=== PATIENT | male | born 1965 | race Caucasian/White ===

== ENCOUNTER 2019-05-20 10:16 | Inpatient (IN) | payer BC ==
[~2019-05-20] VITALS: Ht 167.6 cm; Wt 69.5 kg
[2019-05-20] MEDS ORDERED: SOD CHLORIDE 0.9% 500 ML IV STA (10:18)
--- NOTE | 2019-05-20 10:29 | ERD ---
ER Documentation Chief Complaint Chief Complaint Possible stroke HPI This is a 53-year-old gentleman history of hypertension who presents to the emergency room with possible stroke. Patient arrived via EMS. Last known well time is 2300 on 05/19/2019. The patient states that just before bed he started to note weakness in his right leg. EMS reports weakness in the right leg right upper extremity and right-sided facial droop sparing of the forehead. Patient denies any chest pain shortness breath fevers or chills, no falls, no headache. Patient had a code stroke initiated from the field. He was taken directly to CT. Remainder of HPI is limited given critical nature. During the patient's encounter translation services were utilized Language: Estonian Source: In person ROS All systems reviewed and are negative except as per history of present illness. Medications Home Meds Reported Medications Flaxseed Oil (FLAX SEED OIL) 1,000 Mg Capsule, 1000 MG PO DAILY, CAP 05/20/19 Aspirin* (Aspirin* EC) 81 Mg Tablet.dr, 81 MG PO DAILY, TAB 05/20/19 Amlodipine Besylate* (Norvasc*) 5 Mg Tablet, 5 MG PO DAILY, TAB 05/20/19 Lisinopril* (Lisinopril*) 20 Mg Tablet, 20 MG PO DAILY, #30 TAB 05/20/19 Potassium Chloride* (Potassium Chloride*) 8 Meq Capsule.er, 8 MEQ PO DAILY, CAP 05/20/19 Allergies Allergies: Coded Allergies: Penicillins (Unverified Allergy, Unknown, 05/20/19) PMhx/Soc HTN FmHx Family History: No diabetes Physical Exam Vitals Vital Signs Date Temp Pulse Resp B/P (MAP) Pulse Ox O2 O2 Flow FiO2 Time Delivery Rate 05/20/19 98.0 88 18 179/104 98 10:24 (129) Physical Exam General: Well developed, well nourished, no acute distress Head: Normocephalic, atraumatic. Eyes: Pupils equally reactive, EOM intact ENT: Moist mucous membranes Neck: Supple, no lymphadenopathy Respiratory: Lungs clear bilaterally, no distress Cardiovascular: RRR, no murmurs, rubs, or gallops Abdominal: Soft, non-tender, non-distended, no peritoneal signs : Deferred MSK: No edema, no unilateral swelling, 5/5 strength Neurologic: The patient is alert and oriented. He has a right-sided facial droop sparing of the forehead. He has subtle weakness of the right upper extremity but no significant pronator drift. The patient has weakness of the right lower extremity but no drift. No gaze preference. Following commands. Normal speech, no slurred speech. NIHSS of 2 Skin: No rash Psych: Normal mood Result Diagram: 05/20/19 1035 05/20/19 1035 Results 24 hrs Laboratory Tests Test 05/20/19 10:35 05/20/19 10:58 White Blood Count 12.6 10^3/ul Red Blood Count 4.99 10^6/ul Hemoglobin 15.0 g/dl Hematocrit 43.7 % Mean Corpuscular Volume 87.6 fl Mean Corpuscular Hemoglobin 30.1 pg Mean Corpuscular Hemoglobin Concent 34.3 g/dl Red Cell Distribution Width 12.7 % Platelet Count 123 10^3/UL Mean Platelet Volume 12.4 fl Immature Granulocytes % 0.400 % Neutrophils % 79.6 % Lymphocytes % 7.5 % Monocytes % 11.2 % Eosinophils % 0.8 % Basophils % 0.5 % Nucleated Red Blood Cells % 0.0 /100WBC Immature Granulocytes # 0.050 10^3/ul Neutrophils # 10.0 10^3/ul Lymphocytes # 0.9 10^3/ul Monocytes # 1.4 10^3/ul Eosinophils # 0.1 10^3/ul Basophils # 0.1 10^3/ul Nucleated Red Blood Cells # 0.0 10^3/ul Prothrombin Time 14.4 Sec Prothrombin Time Ratio 1.1 INR International Normalized Ratio 1.11 Activated Partial Thromboplast Time 31.2 Sec Sodium Level 140 mmol/L Potassium Level 3.8 mmol/L Chloride Level 107 mmol/L Carbon Dioxide Level 24 mmol/L Anion Gap 9 Blood Urea Nitrogen 11 mg/dl Creatinine 0.69 mg/dl Est Glomerular Filtrat Rate mL/min > 60 mL/min Glucose Level 91 mg/dl Hemoglobin A1c 5.2 % Calcium Level 8.8 mg/dl Creatine Kinase 54 IU/L Creatine Kinase Index 1.6 Creatinine Kinase MB (Mass) 0.86 ng/ml Troponin I < 0.012 ng/ml Triglycerides Level 211 mg/dl Cholesterol Level 110 mg/dl LDL Cholesterol, Calculated 43 mg/dl HDL Cholesterol 25 mg/dl Cholesterol/HDL Ratio 4.4 RATIO Ethyl Alcohol Level < 10.0 mg/dl Bedside Glucose 106 mg/dL Current Medications Medications Dose Sig/Emmett Start Time Status Last (Trade) Ordered Route PRN Stop Time Admin Dose Reason Admin Sodium 500 ml @ Q1H STAT 05/20/19 DC 05/20/19 Chloride 500 mls/hr IV 10:18 11:16 05/20/19 11:17 IV Flush 10 ml STK-MED 05/20/19 DC 05/20/19 (NS 10 ml) ONCE .ROUTE 10:33 10:37 05/20/19 10:34 Sodium 100 ml @ ud STK-MED 05/20/19 DC 05/20/19 Chloride ONCE .ROUTE 10:33 10:37 05/20/19 10:34 Iohexol 100 ml @ ud STK-MED 05/20/19 DC 05/20/19 ONCE .ROUTE 10:33 10:38 05/20/19 10:34 Aspirin 162 mg ONCE ONCE 05/20/19 DC 05/20/19 (Aspirin) PO 11:00 11:16 05/20/19 11:01 Ondansetron 4 mg ER BRIDGE 05/20/19 HCl (Zofran PRN IV 11:30 Inj) NAUSEA/VOMITI 05/21/19 11:29 NG 650 mg ER BRIDGE 05/20/19 Acetaminophen PRN PO 11:30 (Tylenol .MILD PAIN 05/21/19 11:29 Tab) 1-3 OR TEMP Procedures/MDM EKG, MONITORS, & DIAGNOSTIC IMAGING: EKG: I reviewed and interpreted a 12-lead EKG. Rhythm: Normal sinus rhythm Ectopy: None Arrhythmia: None Intervals: No abnormalities ST segments: No elevations or depressions T waves: No contiguous inversions Interpretation: No acute cardiac ischemia Chest x-ray: I reviewed and interpreted a 1 view of the chest Mediastinum: No enlargement Cardiac silhouette: No cardiomegaly Airspace: Clear lung lee bilaterally without evidence of pneumothorax Bones: No evidence of fracture Interpretation: No acute cardiopulmonary process CT Brain: IMPRESSION: 1. No loss of murray-white differentiation to suggest acute territorial infarction. Consider CTA of the head/neck or noncontrast MRI of the brain as clinically warranted. 2. No acute intracranial hemorrhage. 3. Mild to moderate central greater than peripheral cerebral volume loss. 4. Advanced chronic microvascular ischemic changes. 5. Chronic left frontal opercular infarction as detailed above. 6. Left frontal temporal subdural collection/hygroma with coarse calcifications along the dura as detailed above. 7. Left middle cranial fossa subdural collection versus arachnoid cyst. 8. Left hemisphere craniotomy. 9. 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 Further findings as detailed above. RPTAT: PP CTA Head and Neck: IMPRESSION: CTA Head 1. No arterial thrombus or vessel occlusion. 2. No intracranial stenosis. 3. No intracranial aneurysm. CTA Neck 1. No bilateral cervical internal carotid artery stenosis by NASCET criteria. Further findings as detailed above. Critical findings were discussed with Jethro Jensen on 05/20/2019 at 10:49 AM. RPTAT: PP LAB INTERPRETATION: No acute process, labs reviewed MEDICAL DECISION MAKING: The patient presents to the emergency room with acute neurologic deficit within the past 24 hours. His last known well time is 11 PM yesterday evening. This is almost 12 hours status post onset. The patient is not a TPA candidate for this reason. A code stroke was initiated from the field based on the symptoms. Patient's clinical exam is concerning for possible MCA injury. However, the patient's deficits are mild. ER COURSE: Stroke assessment and timing: Last known well time: 11 PM on 05/19/2019 Arrival to ED: 1016 Stroke code activation: [address] scan: Directed CT Patient returns from CT: See nursing notes Initial neurology discussion: 1034 NIHSS: 2 TPA decision-making: Patient is outside of 4-1/2 hour window Interventional decision-making: Potential interventional candidate given duration of symptoms within 24 hours. Patient directly taken to CTA, CT brain Stroke neurologist on-call: Dr. Head Critical Care Note: Total time: 40 Indication/Organ System Threat: Acute neurologic deficit and stroke code activation that requires emergent evaluation and assessment to prevent neurol ogic compromising collapse. I spent the above amount of critical care time with the patient, not including billable procedures. This included chart review, consultations, repeat bedside evaluations, and titration of appropriate medications to prevent cardiopulmonary or respiratory collapse. The patient does not have a large vessel occlusion. Aspirin provided. Permissive hypertension observed. Patient warrants inpatient hospitalization for further work-up, MRI imaging. I kept the patient and/or family informed of laboratory and diagnostic imaging results throughout the emergency room course. DISPOSITION PLAN: Telemetry admission CONSULTATION: Accepting care team and consultations: I discussed the current laboratory data, diagnostic imaging and emergency care provided. Admitting team: Dr. Parks Admitting team indication: Insurance directed Departure Diagnosis: Primary Impression: Acute ischemic stroke Additional Impressions: Right sided weakness Hypertensive urgency Condition: Stable JETHRO COCHRAN MD May 20, 2019 10:29
[2019-05-20] MEDS ORDERED: IOHEXOL 100 ML ONE (10:33)
[2019-05-20] MEDS ORDERED: SOD CHLORIDE 0.9% 100 ML ONE (10:33)
--- NOTE | 2019-05-20 10:51 | STROKE ---
Date/Time of Note Date/Time of Note DATE: 05/20/19 TIME: 13:26 Patient Information General Arrival Date Age 53 Gender male Weight NIH Stroke Scale NIH Stroke Scale Date/Time Recorded DATE: 05/20/19 TIME: 13: Submitted By Luis Felipe Patino t-PA Imaging Review Date/Time Imaging Reviewed DATE: 05/20/19 TIME: 13:26 t-PA Administration Weight Recommedation submitted by Luis Felipe Patino Recommendations Recommendation ,53 yo rh m with htn presenting with sudden onset right leg weakness last night at 11 pm and right arm weakness starting around 1:00 pm yesterday. he presents to the emergency room now with right face, arm, leg weakness. he has had right leg weakness off and on for years. 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contrast head ct was performed. i reviewed this study. he shows extensive left frontal white matter disease that spares the cortex concerning for vasogenic edema versus remote ischemic stroke or post surgical change. there is also significant extra-axial space overlying the left frontal lobe consistent with his tumor resection history. i reviewed the cta of the head and neck and see that the proximal mca is open on the left and the right. patient should be admitted for stroke workup and stroke mimics such as tumor should be included in the differential diagnoses.Not a candidate for tPA because we are now outside the time frame for such therapy. Not a candidate for thrombectomy because no LVO detected on vascular imaging and low ASPECT score. Aspirin 325 now. BP < 200/110. Telemetry. Consultation with local inpatient neurologist. MRI Brain w/wo. If stroke on MRI - hypercoagulable workup, TTE, consider LINQ. PT/OT/SLT. Bedside swallow. Stroke Education. Smoking cessation counseling, if a smoker. Recommendations were discussed with ED MD and RN. LUIS FELIPE PATINO MD May 20, 2019 10:39
[2019-05-20] MEDS ORDERED: LISI-471 PO (10:58)
[2019-05-20] MEDS ORDERED: POTA8CAP PO (10:58)
[2019-05-20] MEDS ORDERED: ASPI-817 PO (10:59)
[2019-05-20] MEDS ORDERED: AMLO5TAB4 PO (10:59)
[2019-05-20] MEDS ORDERED: FLAX100016 PO (11:00)
[2019-05-20] MEDS ORDERED: ASPIRIN 81 MG TAB PO ONE (11:00)
[2019-05-20] MEDS ORDERED: ACETAMINOPHEN 325 MG TAB PO PRN (11:30)
[2019-05-20] MEDS ORDERED: ONDANSETRON 4 MG INJ IV PRN ×2 (11:30→12:30)
[2019-05-20] MEDS ORDERED: DOCUSATE SODIUM 100 MG CAP PO PRN (12:30)
[2019-05-20] MEDS ORDERED: NACL 0.9% 3 ML SYG IV SCH (12:30)
--- NOTE | 2019-05-20 12:51 | HP ---
Date/Time of Note Date/Time of Note DATE: 05/20/19 TIME: 12:44 Assessment/Plan VTE Prophylaxis Pharmacological prophylaxis: LMWH Lines/Catheters IV [facility]ter [facility]from [facility] Saline Lock Assessment/Plan Hospital Course SUBJECTIVE: OBJECTIVE: Vital signs-see below PHYSICAL EXAM: Constitutional: Adequately built,not in acute distress. HEENT:,Mild rt facial droop+ Head atraumatic and normocephalic. Eyes: Extraocular muscles intact. Anicteric sclerae. Pupils equal bilaterally, reactive to light. NECK: Supple without lymph node. CHEST: Clear and good breath sounds equally. No wheezing. No rhonchi. HEART: S1, S2. Regular rate and rhythm. ABDOMEN: Soft/non tender with no rebound tenderness. Bowel sounds were present. EXTREMITIES: No cyanosis, clubbing or edema. NEUROLOGIC: Alert and oriented x3. Speech clear. Mild rt facial droop. RUE/RLE w eaker without drift.Intact sensation. PSYCHOSOCIAL: No signs of depression. INTEGUMENTARY: No open wounds. ASSESSMENT AND PLAN: 53 yo M w/htn,dlp, tobacco dependency, alcohol use, left frontal temporal hygroma, left-sided craniotomy with tumor resection admitted with 1 week duration of right upper extremity numbness, right lower extremity weakness got worse last night with a right-sided facial droop.... Rule out CVA, outside TPA window -CT brain/CTA studies unrevealing -Proceed with brain MRI -Aspirin/high intensity statin -Neurology consultation -PT/OT/ST -Permissive hypertension ~24hrs Essential hypertension -Resume home medications in AM. -Now allow permissive blood pressure ~24 hrs Dyslipidemia -Start statin -Fish oil supplementation to help with HDL/triglycerides Tobacco dependency -Cessation advised. - Nicotine patch Alcohol use/dependency -Counselled Leukocytosis, likely reactive -Monitor Thrombocytopenia, likely secondary to alcohol use -Stable. Monitor DVT prophylaxis: Lovenox Rest of the management depend on clinical course. Approximately 60 m spent on this history and physical. Patient was seen in collaboration with Dr. Parks. Result Diagram: 05/20/19 1035 05/20/19 1035 Results 24hrs Laboratory Tests Test 05/20/19 10:35 05/20/19 10:58 White Blood Count 12.6 H Red Blood Count 4.99 Hemoglobin 15.0 Hematocrit 43.7 Mean Corpuscular Volume 87.6 Mean Corpuscular Hemoglobin 30.1 Mean Corpuscular Hemoglobin Concent 34.3 Red Cell Distribution Width 12.7 Platelet Count 123 L Mean Platelet Volume 12.4 H Immature Granulocytes % 0.400 Neutrophils % 79.6 H Lymphocytes % 7.5 L Monocytes % 11.2 H Eosinophils % 0.8 Basophils % 0.5 Nucleated Red Blood Cells % 0.0 Immature Granulocytes # 0.050 H Neutrophils # 10.0 H Lymphocytes # 0.9 Monocytes # 1.4 H Eosinophils # 0.1 Basophils # 0.1 Nucleated Red Blood Cells # 0.0 Prothrombin Time 14.4 Prothrombin Time Ratio 1.1 INR International Normalized Ratio 1.11 Activated Partial Thromboplast Time 31.2 Sodium Level 140 Potassium Level 3.8 Chloride Level 107 Carbon Dioxide Level 24 Anion Gap 9 Blood Urea Nitrogen 11 Creatinine 0.69 Est Glomerular Filtrat Rate mL/min > 60 Glucose Level 91 Hemoglobin A1c 5.2 Calcium Level 8.8 Creatine Kinase 54 Creatine Kinase Index 1.6 Creatinine Kinase MB (Mass) 0.86 Troponin I < 0.012 Triglycerides Level 211 H Cholesterol Level 110 LDL Cholesterol, Calculated 43 HDL Cholesterol 25 L Cholesterol/HDL Ratio 4.4 Ethyl Alcohol Level < 10.0 H Bedside Glucose 106 HPI/ROS Admit Date/Time Admit Date/Time Hx of Present Illness This is a 53-year-old Guamanian-speaking male with a history of hypertension, dyslipidemia, tobacco dependency, alcohol use, left frontal temporal hygroma, left-sided craniotomy with tumor resection presented to the emergency room with 1 week duration of right upper extremity numbness, right lower extremity weakness Apparently, patient felt like his right upper extremity weakness got worse with a new right-sided facial droop since last night. Patient also reported having difficulty finding words at times. Patient denied headache, loss of consciousness, dizziness, vision changes, fever, cough, chills, recent travel or contact with sick people, chest pain, palpitation, nausea, vomiting, abdominal pain, diarrhea, or other constitutional symptoms. On arrival to the emergency room, patient had a blood pressure 179/104. Brain CT showed left frontal white matter disease, without evidence to suggest acute territorial infarction. There was no acute intracranial hemorrhage. There was evidence of left frontal temporal subdural collection/hygroma. CTA head/neck unremarkable for any major intracranial/carotid artery stenosis. Labs unremarkable except for white count 12,600, platelet 123, triglycerides 211, low HDL 25. Telemetry neurology consultation was done in the emergency room and patient was deemed not a candidate for TPA secondary to outside window.. ROS A 12 point review of system was assessed and is negative other than what is mentioned in the HPI PMH/Family/Social Past Medical History See HPI Medications Current Medications Ondansetron HCl (Zofran Inj) 4 mg ER BRIDGE PRN IV NAUSEA/VOMITING; Start 05/20/19 at 11:30; Stop 05/21/19 at 11:29 Acetaminophen (Tylenol Tab) 650 mg ER BRIDGE PRN PO .MILD PAIN 1-3 OR TEMP; Start 05/20/19 at 11:30; Stop 05/21/19 at 11:29 Coded Allergies: Penicillins (Unverified Allergy, Unknown, 05/20/19) Past Surgical History See HPI Social History Current every day smoker 1 pack/day, 3 beers per day. Smoking Status: Current every day smoker Exam/Review of Systems Vital Signs Vitals Vital Signs Date Temp Pulse Resp B/P (MAP) Pulse Ox O2 O2 Flow FiO2 Time Delivery Rate 05/20/19 98.0 85 18 184/105 95 Nasal 2.0 12:20 (131) Cannula CADEN CLEMENS NP May 20, 2019 12:51
[2019-05-20] MEDS ORDERED: ATORVASTATIN 80 MG TAB PO ONE (14:00)
[2019-05-20] MEDS ORDERED: hydrALAzine 20 MG INJ IV PRN (14:00)
[2019-05-20 15:13] VITALS: Ht 167.6 cm; Wt 69.5 kg
[2019-05-20 20:33] VITALS: BP 161/93; PULSE 76; RESP 18
[2019-05-20] MEDS ORDERED: LORAZEPAM 2 MG INJ IV ONE (22:00)
[2019-05-20] MEDS: FISH OIL 1,000 MG CAP PO SCH (22:10)
[2019-05-21] VITALS: BP 154/94; PULSE 80; RESP 18
[2019-05-21 04:09] VITALS: BP 126/82; PULSE 61; RESP 16
[2019-05-21 07:25] VITALS: BP 145/86; PULSE 51; RESP 18
[2019-05-21] MEDS: FISH OIL 1,000 MG CAP PO SCH ×2 (08:39→20:02)
[2019-05-21] MEDS: ASPIRIN (EC) 81 MG TAB PO SCH (08:39)
[2019-05-21] MEDS: LISINOPRIL 20 MG TAB PO SCH (08:40)
[2019-05-21] MEDS: AMLODIPINE 5 MG TAB PO SCH (08:40)
[2019-05-21] MEDS: ENOXAPARIN 40 MG/0.4 ML SYG SC SCH (08:54)
--- NOTE | 2019-05-21 09:34 | CONSI ---
Assessment/Plan Assessment/Plan Assessment/Plan (Recall) 53 M c/ multiple comorbidities, presents for evaluation of several days of right sided weakness and numbness...for which neurology is consulted. The clinical picture is concerning for acute stroke.. Focal seizure is possible.. Recrudescence is a Dx of exclusion... Head CT is unrevealing. CTA Head and neck are the same P: Await MRI Brain for further characterization Agree w/ asa daily for secondary stroke prevention for now EEG to exclude epileptiform activity PT/OT/ST as necessary Other management and supportive care per primary Will follow Consultation Date/Type/Reason Admit Date/Time Type of Consult Neurology Reason for Consultation r sided weakness/numbness Requesting Provider: CADEN CLEMENS NP Date/Time of Note DATE: 05/21/19 TIME: 09:26 Hx of Present Illness This is a 53-year-old Kiswahili-speaking male with a history of hypertension, dyslipidemia, tobacco dependency, alcohol use, left frontal temporal hygroma, left-sided craniotomy with tumor resection presented to the emergency room with 1 week duration of right upper extremity numbness, right lower extremity weakness Apparently, patient felt like his right upper extremity weakness got worse with a new right-sided facial droop since last night. Patient also reported having d ifficulty finding words at times. Patient denied headache, loss of consciousness, dizziness, vision changes, fever, cough, chills, recent travel or contact with sick people, chest pain, palpitation, nausea, vomiting, abdominal pain, diarrhea, or other constitutional symptoms. On arrival to the emergency room, patient had a blood pressure 179/104. Brain CT showed left frontal white matter disease, without evidence to suggest acute territorial infarction. There was no acute intracranial hemorrhage. There was evidence of left frontal temporal subdural collection/hygroma. CTA head/neck unremarkable for any major intracranial/carotid artery stenosis. Labs unremarkable except for white count 12,600, platelet 123, triglycerides 211, low HDL 25. Telemetry neurology consultation was done in the emergency room and patient was deemed not a candidate for TPA secondary to outside window.. o/w neg Objective Exam Vitals Vital Signs Date Temp Pulse Resp B/P (MAP) Pulse Ox O2 O2 Flow FiO2 Time Delivery Rate 05/21/19 97.5 51 18 145/86 98 Room Air 07:25 (105) 05/20/19 2.0 13:54 Intake and Output 05/20/19 05/20/19 05/21/19 1515:00 23:00 07:00 IntakeIntake Total 610 ml OutputOutput Total 750 ml BalanceBalance -140 ml Exam PE: Gen Appearance: No Apparent Distress HEENT: Normocephalic Cardiovascular: Regular rate Lungs: Clear bilaterally Abdomen: Soft Extremities: Dry NE: The patient was alert and oriented. Language was normal. Fund of knowledge was normal. Pupils were equal and reactive to light. There was no afferent pupillary defect. Visual lee were normal. Funduscopic examination was limited. Extra-ocular movements were full. Ptosis was absent. There was no nystagmus. Facial sensation was normal. Face was grossly symmetric with normal strength. Hearing was intact. Palate movements were normal. Neck strength was normal. There was normal tongue bulk and speed of movement. Tone was normal. Muscle bulk was normal. I did not see fasciculations. Arms and legs were strong to confrontation, though there was a right pronator drift.. Vibration sensation was normal. Temperature and pinprick sensation was normal. Rapid alternating movements were normal. There was no dysmetria. There was no intention tremor. Gait was deferred due to bedrest. Arm and leg reflexes were symmetric. Danielson's sign was absent. Plantar responses were flexor. Results Result Diagram: 05/21/1961205/21/19612 Results 24hrs Laboratory Tests Test 05/20/19 10:35 05/20/19 10:58 05/20/19 14:47 05/20/19 15:50 White Blood Count 12.6 H Red Blood Count 4.99 Hemoglobin 15.0 Hematocrit 43.7 Mean Corpuscular 87.6 Volume Mean Corpuscular 30.1 Hemoglobin Mean Corpuscular 34.3 Hemoglobin Concent Red Cell 12.7 Distribution Width Platelet Count 123 L 127 L Mean Platelet Volume 12.4 H Immature 0.400 Granulocytes % Neutrophils % 79.6 H Lymphocytes % 7.5 L Monocytes % 11.2 H Eosinophils % 0.8 Basophils % 0.5 Nucleated Red Blood 0.0 Cells % Immature 0.050 H Granulocytes # Neutrophils # 10.0 H Lymphocytes # 0.9 Monocytes # 1.4 H Eosinophils # 0.1 Basophils # 0.1 Nucleated Red Blood 0.0 Cells # Prothrombin Time 14.4 13.8 Prothrombin Time 1.1 1.1 Ratio INR International 1.11 1.05 Normalized Ratio Activated 31.2 31.1 Partial Thromboplast Time Sodium Level 140 Potassium Level 3.8 Chloride Level 107 Carbon Dioxide Level 24 Anion Gap 9 Blood Urea Nitrogen 11 Creatinine 0.69 Est Glomerular > 60 Filtrat Rate mL/min Glucose Level 91 Hemoglobin A1c 5.2 Calcium Level 8.8 Creatine Kinase 54 Creatine Kinase 1.6 Index Creatinine Kinase MB 0.86 (Mass) Troponin I < 0.012 Triglycerides Level 211 H Cholesterol Level 110 LDL Cholesterol, 43 Calculated HDL Cholesterol 25 L Cholesterol/HDL 4.4 Ratio Ethyl Alcohol Level < 10.0 H Bedside Glucose 106 Thrombin Time 15.6 Urine Color YELLOW Urine Clarity CLEAR Urine pH 7.0 Urine Specific 1.033 H [place] Urine Ketones NEGATIVE Urine Nitrite NEGATIVE Urine Bilirubin NEGATIVE Urine Urobilinogen NEGATIVE Urine Leukocyte NEGATIVE Esterase Urine Hemoglobin NEGATIVE Urine Glucose NEGATIVE Urine Total Protein NEGATIVE Urine Opiates Screen Negative Urine Barbiturates Negative Urine Amphetamines Negative Screen Urine Negative Benzodiazepines Screen Urine Cocaine Screen Negative Urine Cannabinoids Negative Test 05/21/19 06:13 White Blood Count 12.7 H Red Blood Count 5.21 Hemoglobin 15.8 Hematocrit 46.1 Mean Corpuscular 88.5 Volume Mean Corpuscular 30.3 Hemoglobin Mean Corpuscular 34.3 Hemoglobin Concent Red Cell 12.8 Distribution Width Platelet Count 130 L Mean Platelet Volume 12.8 H Immature 0.400 Granulocytes % Neutrophils % 68.6 Lymphocytes % 16.6 Monocytes % 11.4 H Eosinophils % 2.4 Basophils % 0.6 Nucleated Red Blood 0.0 Cells % Immature 0.050 H Granulocytes # Neutrophils # 8.7 H Lymphocytes # 2.1 Monocytes # 1.4 H Eosinophils # 0.3 Basophils # 0.1 Nucleated Red Blood 0.0 Cells # Sodium Level 142 Potassium Level 3.8 Chloride Level 107 Carbon Dioxide Level 24 Anion Gap 11 Blood Urea Nitrogen 11 Creatinine 0.80 Est Glomerular > 60 Filtrat Rate mL/min Glucose Level 120 Calcium Level 9.3 Phosphorus Level 3.8 Magnesium Level 2.2 Total Bilirubin 1.3 Direct Bilirubin 0.00 Indirect Bilirubin 1.3 H Aspartate Amino 21 Transf (AST/SGOT) Alanine 20 Aminotransferase (AL T/SGPT) Alkaline Phosphatase 76 Total Protein 6.6 Albumin 4.1 Globulin 2.50 Albumin/Globulin 1.64 Ratio Past Medical History reviewed Home Meds Reported Medications Flaxseed Oil (FLAX SEED OIL) 1,000 Mg Capsule, 1000 MG PO DAILY, CAP 05/20/19 Aspirin* (Aspirin* EC) 81 Mg Tablet.dr, 81 MG PO DAILY, TAB 05/20/19 Amlodipine Besylate* (Norvasc*) 5 Mg Tablet, 5 MG PO DAILY, TAB 05/20/19 Lisinopril* (Lisinopril*) 20 Mg Tablet, 20 MG PO DAILY, #30 TAB 05/20/19 Potassium Chloride* (Potassium Chloride*) 8 Meq Capsule.er, 8 MEQ PO DAILY, CAP 05/20/19 Medications Current Medications Ondansetron HCl (Zofran Inj) 4 mg ER BRIDGE PRN IV NAUSEA/VOMITING; Start 05/20/19 at 11:30; Stop 05/21/19 at 11:29 Acetaminophen (Tylenol Tab) 650 mg ER BRIDGE PRN PO .MILD PAIN 1-3 OR TEMP; Start 05/20/19 at 11:30; Stop 05/21/19 at 11:29 Amlodipine Besylate (Norvasc) 5 mg DAILY PO Last administered on 05/21/19at 08: 40; Admin Dose 5 MG; Start 05/21/19 at 09:00 Aspirin (Halfprin) 81 mg DAILY PO Last administered on 05/21/19at 08:39; Admin Dose 81 MG; Start 05/21/19 at 09:00 Lisinopril (Zestril) 20 mg DAILY PO Last administered on 05/21/19at 08:40; Admin Dose 20 MG; Start 05/21/19 at 09:00 IV Flush (NS 3 ml) 3 ml PER PROTOCOL IV ; Start 05/20/19 at 12:30 Ondansetron HCl (Zofran Inj) 4 mg Q6H PRN IV NAUSEA/VOMITING; Start 05/20/19 at 12:30 Acetaminophen (Tylenol Tab) 650 mg Q6H PRN PO .PAIN 1-3 OR TEMP; Start 05/20/19 at 12:30 Docusate Sodium (Colace) 100 mg Q12H PRN PO .CONSTIPATION; Start 05/20/19 at 12 :30 Enoxaparin Sodium (Lovenox) 40 mg DAILY SC Last administered on 05/21/19at 08:54; Admin Dose 40 MG; Start 05/21/19 at 09:00 Atorvastatin Calcium (Lipitor) 80 mg HS PO ; Start 05/21/19 at 21:00 Fish Oil (Fish Oil) 1,000 mg BID PO Last administered on 05/21/19at 08:39; Admin Dose 1,000 MG; Start 05/20/19 at 21:00 Hydralazine HCl (Apresoline) 10 mg Q6H PRN IV SBP>210; Start 05/20/19 at 14:00 Miscellaneous Information Patients own medicat... BID@10,16 XX ; Start 05/21/19 at 10:00 Allergies: Coded Allergies: Penicillins (Unverified Allergy, Unknown, 05/20/19) Social History Smoking Status: Current every day smoker CHARLIE MAKI May 21, 2019 09:34
--- NOTE | 2019-05-21 10:31 | PN ---
Date/Time of Note Date/Time of Note DATE: 05/21/19 TIME: : Assessment/Plan VTE Prophylaxis SCD applied (from Nsg): Yes Pharmacological prophylaxis: LMWH Lines/Catheters IV Catheter Type (from Nrsg): Peripheral IV Urinary Cath still in place: No Assessment/Plan Hospital Course SUBJECTIVE: No acute overnight episodes. No focal deficits. OBJECTIVE: Vital signs-see below PHYSICAL EXAM: Constitutional: Adequately built,not in acute distress. HEENT:,Mild rt facial droop+ Head atraumatic and normocephalic. Eyes: Extraocular muscles intact. Anicteric sclerae. Pupils equal bilaterally, reactive to light. NECK: Supple without lymph node. CHEST: Clear and good breath sounds equally. No wheezing. No rhonchi. HEART: S1, S2. Regular rate and rhythm. ABDOMEN: Soft/non tender with no rebound tenderness. Bowel sounds were present. EXTREMITIES: No cyanosis, clubbing or edema. NEUROLOGIC: Alert and oriented x3. Speech clear. Mild rt facial droop. RUE/RLE weaker without drift.Intact sensation. PSYCHOSOCIAL: No signs of depression. INTEGUMENTARY: No open wounds. ASSESSMENT AND PLAN: 53 yo M w/htn,dlp, tobacco dependency, alcohol use, left frontal temporal hygroma, left-sided craniotomy with tumor resection admitted with 1 week duration of right upper extremity numbness, right lower extremity weakness got worse last night with a right-sided facial droop.... Rule out CVA, outside TPA window -CT brain/CTA studies unrevealing -pending brain MRI -Aspirin/high intensity statin -PT/OT/ST -f/u neurology recs Essential hypertension -stable -Resume CCB Dyslipidemia -on statin/Fish oil supplementation Tobacco dependency -Cessation advised. - Nicotine patch Alcohol use/dependency -Counselled Leukocytosis, likely reactive -Monitor Thrombocytopenia, likely secondary to alcohol use -Stable. Monitor DVT prophylaxis: Lovenox Dispo:f/u mri/eeg. dc plan likely in am once work-up completed. Patient was seen in collaboration with Dr. Parks. Result Diagram: 05/21/19 0613 05/21/1913 Results 24hrs Laboratory Tests Test 05/20/19 10:35 05/20/19 10:58 05/20/19 14:47 05/20/19 15:50 White Blood Count 12.6 H Red Blood Count 4.99 Hemoglobin 15.0 Hematocrit 43.7 Mean Corpuscular 87.6 Volume Mean Corpuscular 30.1 Hemoglobin Mean Corpuscular 34.3 Hemoglobin Concent Red Cell 12.7 Distribution Width Platelet Count 123 L 127 L Mean Platelet Volume 12.4 H Immature 0.400 Granulocytes % Neutrophils % 79.6 H Lymphocytes % 7.5 L Monocytes % 11.2 H Eosinophils % 0.8 Basophils % 0.5 Nucleated Red Blood 0.0 Cells % Immature 0.050 H Granulocytes # Neutrophils # 10.0 H Lymphocytes # 0.9 Monocytes # 1.4 H Eosinophils # 0.1 Basophils # 0.1 Nucleated Red Blood 0.0 Cells # Prothrombin Time 14.4 13.8 Prothrombin Time 1.1 1.1 Ratio INR International 1.11 1.05 Normalized Ratio Activated 31.2 31.1 Partial Thromboplast Time Sodium Level 140 Potassium Level 3.8 Chloride Level 107 Carbon Dioxide Level 24 Anion Gap 9 Blood Urea Nitrogen 11 Creatinine 0.69 Est Glomerular > 60 Filtrat Rate mL/min Glucose Level 91 Hemoglobin A1c 5.2 Calcium Level 8.8 Creatine Kinase 54 Creatine Kinase 1.6 Index Creatinine Kinase MB 0.86 (Mass) Troponin I < 0.012 Triglycerides Level 211 H Cholesterol Level 110 LDL Cholesterol, 43 Calculated HDL Cholesterol 25 L Cholesterol/HDL 4.4 Ratio Ethyl Alcohol Level < 10.0 H Bedside Glucose 106 Thrombin Time 15.6 Urine Color YELLOW Urine Clarity CLEAR Urine pH 7.0 Urine Specific 1.033 H [place] Urine Ketones NEGATIVE Urine Nitrite NEGATIVE Urine Bilirubin NEGATIVE Urine Urobilinogen NEGATIVE Urine Leukocyte NEGATIVE Esterase Urine Hemoglobin NEGATIVE Urine Glucose NEGATIVE Urine Total Protein NEGATIVE Urine Opiates Screen Negative Urine Barbiturates Negative Urine Amphetamines Negative Screen Urine Negative Benzodiazepines Screen Urine Cocaine Screen Negative Urine Cannabinoids Negative Test 05/21/19 06:13 White Blood Count 12.7 H Red Blood Count 5.21 Hemoglobin 15.8 Hematocrit 46.1 Mean Corpuscular 88.5 Volume Mean Corpuscular 30.3 Hemoglobin Mean Corpuscular 34.3 Hemoglobin Concent Red Cell 12.8 Distribution Width Platelet Count 130 L Mean Platelet Volume 12.8 H Immature 0.400 Granulocytes % Neutrophils % 68.6 Lymphocytes % 16.6 Monocytes % 11.4 H Eosinophils % 2.4 Basophils % 0.6 Nucleated Red Blood 0.0 Cells % Immature 0.050 H Granulocytes # Neutrophils # 8.7 H Lymphocytes # 2.1 Monocytes # 1.4 H Eosinophils # 0.3 Basophils # 0.1 Nucleated Red Blood 0.0 Cells # Sodium Level 142 Potassium Level 3.8 Chloride Level 107 Carbon Dioxide Level 24 Anion Gap 11 Blood Urea Nitrogen 11 Creatinine 0.80 Est Glomerular > 60 Filtrat Rate mL/min Glucose Level 120 Calcium Level 9.3 Phosphorus Level 3.8 Magnesium Level 2.2 Total Bilirubin 1.3 Direct Bilirubin 0.00 Indirect Bilirubin 1.3 H Aspartate Amino 21 Transf (AST/SGOT) Alanine 20 Aminotransferase (AL T/SGPT) Alkaline Phosphatase 76 Total Protein 6.6 Albumin 4.1 Globulin 2.50 Albumin/Globulin 1.64 Ratio Exam/Review of Systems Exam Vitals Vital Signs Date Temp Pulse Resp B/P (MAP) Pulse Ox O2 O2 Flow FiO2 Time Delivery Rate 05/21/19 97.5 51 18 145/86 98 Room Air 07:25 (105) 05/20/19 2.0 13:54 Intake and Output 05/20/19 05/20/19 05/21/19 1515:00 23:00 07:00 IntakeIntake Total 610 ml OutputOutput Total 750 ml BalanceBalance -140 ml Results Results 24hrs Laboratory Tests Test 05/20/19 10:35 05/20/19 10:58 05/20/19 14:47 05/20/19 15:50 White Blood Count 12.6 H Red Blood Count 4.99 Hemoglobin 15.0 Hematocrit 43.7 Mean Corpuscular 87.6 Volume Mean Corpuscular 30.1 Hemoglobin Mean Corpuscular 34.3 Hemoglobin Concent Red Cell 12.7 Distribution Width Platelet Count 123 L 127 L Mean Platelet Volume 12.4 H Immature 0.400 Granulocytes % Neutrophils % 79.6 H Lymphocytes % 7.5 L Monocytes % 11.2 H Eosinophils % 0.8 Basophils % 0.5 Nucleated Red Blood 0.0 Cells % Immature 0.050 H Granulocytes # Neutrophils # 10.0 H Lymphocytes # 0.9 Monocytes # 1.4 H Eosinophils # 0.1 Basophils # 0.1 Nucleated Red Blood 0.0 Cells # Prothrombin Time 14.4 13.8 Prothrombin Time 1.1 1.1 Ratio INR International 1.11 1.05 Normalized Ratio Activated 31.2 31.1 Partial Thromboplast Time Sodium Level 140 Potassium Level 3.8 Chloride Level 107 Carbon Dioxide Level 24 Anion Gap 9 Blood Urea Nitrogen 11 Creatinine 0.69 Est Glomerular > 60 Filtrat Rate mL/min Glucose Level 91 Hemoglobin A1c 5.2 Calcium Level 8.8 Creatine Kinase 54 Creatine Kinase 1.6 Index Creatinine Kinase MB 0.86 (Mass) Troponin I < 0.012 Triglycerides Level 211 H Cholesterol Level 110 LDL Cholesterol, 43 Calculated HDL Cholesterol 25 L Cholesterol/HDL 4.4 Ratio Ethyl Alcohol Level < 10.0 H Bedside Glucose 106 Thrombin Time 15.6 Urine Color YELLOW Urine Clarity CLEAR Urine pH 7.0 Urine Specific 1.033 H [place] Urine Ketones NEGATIVE Urine Nitrite NEGATIVE Urine Bilirubin NEGATIVE Urine Urobilinogen NEGATIVE Urine Leukocyte NEGATIVE Esterase Urine Hemoglobin NEGATIVE Urine Glucose NEGATIVE Urine Total Protein NEGATIVE Urine Opiates Screen Negative Urine Barbiturates Negative Urine Amphetamines Negative Screen Urine Negative Benzodiazepines Screen Urine Cocaine Screen Negative Urine Cannabinoids Negative Test 05/21/19 06:13 White Blood Count 12.7 H Red Blood Count 5.21 Hemoglobin 15.8 Hematocrit 46.1 Mean Corpuscular 88.5 Volume Mean Corpuscular 30.3 Hemoglobin Mean Corpuscular 34.3 Hemoglobin Concent Red Cell 12.8 Distribution Width Platelet Count 130 L Mean Platelet Volume 12.8 H Immature 0.400 Granulocytes % Neutrophils % 68.6 Lymphocytes % 16.6 Monocytes % 11.4 H Eosinophils % 2.4 Basophils % 0.6 Nucleated Red Blood 0.0 Cells % Immature 0.050 H Granulocytes # Neutrophils # 8.7 H Lymphocytes # 2.1 Monocytes # 1.4 H Eosinophils # 0.3 Basophils # 0.1 Nucleated Red Blood 0.0 Cells # Sodium Level 142 Potassium Level 3.8 Chloride Level 107 Carbon Dioxide Level 24 Anion Gap 11 Blood Urea Nitrogen 11 Creatinine 0.80 Est Glomerular > 60 Filtrat Rate mL/min Glucose Level 120 Calcium Level 9.3 Phosphorus Level 3.8 Magnesium Level 2.2 Total Bilirubin 1.3 Direct Bilirubin 0.00 Indirect Bilirubin 1.3 H Aspartate Amino 21 Transf (AST/SGOT) Alanine 20 Aminotransferase (AL T/SGPT) Alkaline Phosphatase 76 Total Protein 6.6 Albumin 4.1 Globulin 2.50 Albumin/Globulin 1.64 Ratio Medications Medication Current Medications Ondansetron HCl (Zofran Inj) 4 mg ER BRIDGE PRN IV NAUSEA/VOMITING; Start 05/20/19 at 11:30; Stop 05/21/19 at 11:29 Acetaminophen (Tylenol Tab) 650 mg ER BRIDGE PRN PO .MILD PAIN 1-3 OR TEMP; Start 05/20/19 at 11:30; Stop 05/21/19 at 11:29 Amlodipine Besylate (Norvasc) 5 mg DAILY PO Last administered on 05/21/19at 08:40; Admin Dose 5 MG; Start 05/21/19 at 09:00 Aspirin (Halfprin) 81 mg DAILY PO Last administered on 05/21/19at 08:39; Admin Dose 81 MG; Start 05/21/19 at 09:00 Lisinopril (Zestril) 20 mg DAILY PO Last administered on 05/21/19at 08:40; Admin Dose 20 MG; Start 05/21/19 at 09:00 IV Flush (NS 3 ml) 3 ml PER PROTOCOL IV ; Start 05/20/19 at 12:30 Ondansetron HCl (Zofran Inj) 4 mg Q6H PRN IV NAUSEA/VOMITING; Start 05/20/19 at 12:30 Acetaminophen (Tylenol Tab) 650 mg Q6H PRN PO .PAIN 1-3 OR TEMP; Start 05/20/19 at 12:30 Docusate Sodium (Colace) 100 mg Q12H PRN PO .CONSTIPATION; Start 05/20/19 at 12:30 Enoxaparin Sodium (Lovenox) 40 mg DAILY SC Last administered on 05/21/19at 08:54; Admin Dose 40 MG; Start 05/21/19 at 09:00 Atorvastatin Calcium (Lipitor) 80 mg HS PO ; Start 05/21/19 at 21:00 Fish Oil (Fish Oil) 1,000 mg BID PO Last administered on 05/21/19at 08:39; Admin Dose 1,000 MG; Start 05/20/19 at 21:00 Hydralazine HCl (Apresoline) 10 mg Q6H PRN IV SBP>210; Start 05/20/19 at 14:00 Miscellaneous Information Patients own medicat... BID@,16 XX ; Start 05/21/19 at 10:00 CADEN CLEMENS NP May 21, 2019 10:31
[2019-05-21] MEDS: NICOTINE (21 MG/24 HR) PATCH TRANSDERM SCH (11:32)
[2019-05-21 12:18] VITALS: BP 160/82; PULSE 84; RESP 18
--- NOTE | 2019-05-21 12:33 | RADRPT ---
Echocardiogram Report Patient Name: Gwen MCNEALnt ID: [id number] : 1965 (53y 9m)Study Date: 05/20/2019 1:33:57 PM Gender: MAccession #: [id number] Tech: Shade Garvin RDCS Location: ER Ref.Physician: CADEN CLEMENS Height(Cm): BSA: Weight(Kg): Quality: AdequateOrder Physician: CADEN CLEMENS Account #: Procedures: Echocardiographic Report: Transthoracic echocardiogram with complete 2D, M-Mode, and doppler examination. Indications: Measurements: 2D/M Mode Doppler Measurement Value Normal Range Measurement Value Normal Range LVIDd 2D 4.4 [ 4.2 - 5.8 ] cm AV Peak Sudarshan 1.5 [ 100.0 - 170.0 ] cm/sec LVIDs 2D 2.8 [ 2.5 - 4.0 ] cm AV Peak PG 9.0 [ 2.0 - 9.0 ] mmHg LVPWd 2D 1.3 [ 0.6 - 1.0 ] cm LVOT Peak Sudarshan 1.1 [ 70.0 - 110.0 ] cm/sec IVSd 2D 1.3 [ 0.6 - 1.0 ] cm LVOT Peak PG 5.0 [ 2.0 - 6.0 ] mmHg AoR Diam 2D 3.0 [ 2.6 - 3.4 ] cm MV E Peak Sudarshan 0.9 [ 60.0 - 130.0 ] cm/sec EDV 2D 89.1 [ 62.0 - 150.0 ] ml MV A Peak Sudarshan 1.2 [ 100.0 - 120.0 ] cm/sec ESV 2D 29.6 [ 21.0 - 61.0 ] ml MV E/A 0.7 [ 0.8 - 1.5 ] ratio EF 2D 66.8 [ 52.0 - 72.0 ] percent MV Decel Time 239 [ 104 - 258 ] msec LA Dimen 2D 3.4 [ 3.0 - 4.0 ] cm Lat E` Sudarshan 0.1 [ 10.0 - 15.0 ] cm/sec Lateral E/E` 13.0 [ 1.0 - 2.0 ] ratio Med E` Sudarshan 0.1 cm/sec MV E/A 0.7 [ 0.8 - 1.5 ] ratio TR Peak Sudarshan 1.6 [ 100.0 - 280.0 ] cm/sec TR Peak PG 11.0 mmHg RVSP 14.0 [ 10.0 - 36.0 ] mmHg RA Pressure 3.0 mmHg Findings: Left Ventricle: Normal left ventricular systolic function. Normal left ventricular cavity size. Mild concentric left ventricular hypertrophy. Ejection fraction is visually estimated at 65 %. Tissue Doppler/Mitral Doppler indices are consistent with impaired relaxation (Stage I diastolic dysfunction). Right Ventricle: Normal right ventricular size. Normal right ventricular systolic function. Left Atrium: There is mild enlargement of left atrium. Right Atrium: The right atrium is normal in size. Atrial Septum: Bubble study was performed with and with out valsalva indicating no evidence of intra atrial shunt. Mitral Valve: Normal appearance of the mitral valve. Normal appearance and function of the mitral valve with trace physiologic regurgitation. Aortic Valve: Normal appearance of the aortic valve. No significant aortic stenosis or insufficiency. Tricuspid Valve: Normal appearance and function of the tricuspid valve with trace physiologic regurgitation. Unable to obtain RVSP due to minimal presence of tricuspid regurgitation. Pulmonic Valve: Normal pulmonic valve appearance. Pericardium: Normal pericardium with no significant pericardial effusion. Aorta: Normal aortic root. IVC: Normal size and normal respiratory collapse consistent with normal right atrial pressure. Conclusions: Normal left ventricular systolic function. Normal left ventricular cavity size. Mild concentric left ventricular hypertrophy. Ejection fraction is visually estimated at 65 %. Tissue Doppler/Mitral Doppler indices are consistent with impaired relaxation (Stage I diastolic dysfunction). No significant valvular stenosis or regurgitation seen. Bubble study was performed with and with out valsalva indicating no evidence of intra atrial shunt. Unable to obtain RVSP due to minimal presence of tricuspid regurgitation. Normal size and normal respiratory collapse consistent with normal right atrial pressure. Electronically Signed By: Aron Krause 2019-05-21 12:32:40 PDT
[2019-05-21 15:20] VITALS: BP 151/91; PULSE 89; RESP 18
[2019-05-21 20:00] VITALS: BP 162/74; PULSE 88; RESP 18
[2019-05-21] MEDS: ATORVASTATIN 80 MG TAB PO SCH (20:02)
[2019-05-22] VITALS: BP 176/104; PULSE 79; RESP 18
[2019-05-22 04:00] VITALS: BP 135/83; PULSE 89; RESP 18
[2019-05-22 07:29] VITALS: BP 161/96; PULSE 87; RESP 18
[2019-05-22] MEDS: FISH OIL 1,000 MG CAP PO SCH ×2 (08:31→20:51)
[2019-05-22] MEDS: AMLODIPINE 5 MG TAB PO SCH (08:32)
[2019-05-22] MEDS: ASPIRIN (EC) 81 MG TAB PO SCH (08:32)
[2019-05-22] MEDS: NICOTINE (21 MG/24 HR) PATCH TRANSDERM SCH (08:32)
[2019-05-22] MEDS: LISINOPRIL 20 MG TAB PO SCH (08:32)
[2019-05-22] MEDS: ENOXAPARIN 40 MG/0.4 ML SYG SC SCH (09:41)
--- NOTE | 2019-05-22 10:14 | PN ---
Date/Time of Note Date/Time of Note DATE: 05/22/19 TIME: 10:11 Assessment/Plan VTE Prophylaxis Risk score (from Ns)>0 risk: 2 SCD applied (from Ns): Yes Pharmacological prophylaxis: NA/contraindicated Pharm contraindication: low risk/ambulating, thrombocytopenia Lines/Catheters [facility] (from [facility] Peripheral IV Urinary Cath still in place: No Assessment/Plan Hospital Course SUBJECTIVE: no acute distress OBJECTIVE: Vital signs-see below PHYSICAL EXAM: Constitutional: Adequately built,not in acute distress. HEENT:,Mild rt facial droop+ Head atraumatic and normocephalic. Eyes: Extraocular muscles intact. Anicteric sclerae. Pupils equal bilaterally, reactive to light. NECK: Supple without lymph node. CHEST: Clear and good breath sounds equally. No wheezing. No rhonchi. HEART: S1, S2. Regular rate and rhythm. ABDOMEN: Soft/non tender with no rebound tenderness. Bowel sounds were present. EXTREMITIES: No cyanosis, clubbing or edema. NEUROLOGIC: Alert and oriented x3. Speech clear. Mild rt facial droop. RUE/RLE weaker without drift.Intact sensation. PSYCHOSOCIAL: No signs of depression. INTEGUMENTARY: No open wounds. ASSESSMENT AND PLAN: 53 yo M w/htn,dlp, tobacco dependency, alcohol use, left frontal temporal hygroma, left-sided craniotomy with tumor resection admitted with 1 week duration of right upper extremity numbness, right lower extremity weakness got worse last night with a right-sided facial droop.... Acute CVA, outside TPA window -Aspirin/high intensity statin -PT/OT/ST -f/u neurology recs Essential hypertension -stable -on CCB Dyslipidemia -on statin/Fish oil supplementation Tobacco dependency -Cessation advised. - Nicotine patch Alcohol use/dependency -Counselled Leukocytosis, likely reactive -Monitor Mild Thrombocytopenia, likely secondary to alcohol use -Stable. Monitor DVT prophylaxis: SCDs Dispo:cont.post stroke rehab. f/u neurology recs.dc planning in am if no further inpt rehab indicated. Patient was seen in collaboration with Dr. Parks. Result Diagram: 05/22/19 0550 05/22/19 0550 Results 24hrs Laboratory Tests Test 05/22/19 05:50 White Blood Count 12.6 H Red Blood Count 5.32 Hemoglobin 16.2 Hematocrit 46.7 Mean Corpuscular Volume 87.8 Mean Corpuscular Hemoglobin 30.5 Mean Corpuscular Hemoglobin Concent 34.7 Red Cell Distribution Width 12.6 Platelet Count 124 L Mean Platelet Volume 12.7 H Immature Granulocytes % 0.600 H Neutrophils % 72.6 Lymphocytes % 13.7 L Monocytes % 11.1 H Eosinophils % 1.6 Basophils % 0.4 Nucleated Red Blood Cells % 0.0 Immature Granulocytes # 0.070 H Neutrophils # 9.2 H Lymphocytes # 1.7 Monocytes # 1.4 H Eosinophils # 0.2 Basophils # 0.1 Nucleated Red Blood Cells # 0.0 Sodium Level 141 Potassium Level 3.5 Chloride Level 108 Carbon Dioxide Level 23 Anion Gap 10 Blood Urea Nitrogen 13 Creatinine 0.75 Est Glomerular Filtrat Rate mL/min > 60 Glucose Level 124 Calcium Level 9.0 Exam/Review of Systems Exam Vitals Vital Signs Date Temp Pulse Resp B/P (MAP) Pulse Ox O2 O2 Flow FiO2 Time Delivery Rate 05/22/19 98.7 87 18 161/96 98 Room Air 07:29 (117) 05/20/19 2.0 13:54 Intake and Output 05/21/19 05/21/19 05/22/19 1515:00 23:00 07:00 IntakeIntake Total 300 ml 500 ml 240 ml BalanceBalance 300 ml 500 ml 240 ml Results Results 24hrs Laboratory Tests Test 05/22/19 05:50 White Blood Count 12.6 H Red Blood Count 5.32 Hemoglobin 16.2 Hematocrit 46.7 Mean Corpuscular Volume 87.8 Mean Corpuscular Hemoglobin 30.5 Mean Corpuscular Hemoglobin Concent 34.7 Red Cell Distribution Width 12.6 Platelet Count 124 L Mean Platelet Volume 12.7 H Immature Granulocytes % 0.600 H Neutrophils % 72.6 Lymphocytes % 13.7 L Monocytes % 11.1 H Eosinophils % 1.6 Basophils % 0.4 Nucleated Red Blood Cells % 0.0 Immature Granulocytes # 0.070 H Neutrophils # 9.2 H Lymphocytes # 1.7 Monocytes # 1.4 H Eosinophils # 0.2 Basophils # 0.1 Nucleated Red Blood Cells # 0.0 Sodium Level 141 Potassium Level 3.5 Chloride Level 108 Carbon Dioxide Level 23 Anion Gap 10 Blood Urea Nitrogen 13 Creatinine 0.75 Est Glomerular Filtrat Rate mL/min > 60 Glucose Level 124 Calcium Level 9.0 Medications Medication Current Medications Amlodipine Besylate (Norvasc) 5 mg DAILY PO Last administered on 05/22/19 08:32; Admin Dose 5 MG; Start 05/21/19 at 09:00 Aspirin (Halfprin) 81 mg DAILY PO Last administered on 05/22/19 08:32; Admin Dose 81 MG; Start 05/21/19 at 09:00 Lisinopril (Zestril) 20 mg DAILY PO Last administered on 05/22/19 08:32; Admin Dose 20 MG; Start 05/21/19 at 09:00 IV Flush (NS 3 ml) 3 ml PER PROTOCOL IV ; Start 05/20/19 at 12:30 Ondansetron HCl (Zofran Inj) 4 mg Q6H PRN IV NAUSEA/VOMITING; Start 05/20/19 at 12:30 Acetaminophen (Tylenol Tab) 650 mg Q6H PRN PO .PAIN 1-3 OR TEMP; Start 05/20/19 at 12:30 Docusate Sodium (Colace) 100 mg Q12H PRN PO .CONSTIPATION; Start 05/20/19 at 12:30 Enoxaparin Sodium (Lovenox) 40 mg DAILY SC Last administered on 05/22/19 09:41; Admin Dose 40 MG; Start 05/21/19 at 09:00 Atorvastatin Calcium (Lipitor) 80 mg HS PO Last administered on 05/21/19 20:02; Admin Dose 80 MG; Start 05/21/19 at 21:00 Fish Oil (Fish Oil) 1,000 mg BID PO Last administered on 05/22/19 08:31; Admin Dose 1,000 MG; Start 05/20/19 at 21:00 Hydralazine HCl (Apresoline) 10 mg Q6H PRN IV SBP>170 Last administered on 05/22/19 00:41; Admin Dose 10 MG; Start 05/20/19 at 14:00 Miscellaneous Information Patients own medicat... BID@10,16 XX ; Start 05/21/19 at 10:00 Nicotine (Nicoderm 21 Mg/ 24hr) 1 patch DAILY TRANSDERM Last administered on 05/22/19 08:32; Admin Dose 1 PATCH; Start 05/21/19 at 10:30 CADEN CLEMENS NP May 22, 2019 10:14
[2019-05-22 16:22] VITALS: BP 139/90; PULSE 83; RESP 18
[2019-05-22 20:00] VITALS: BP 158/92; PULSE 89; RESP 18
[2019-05-22] MEDS: ATORVASTATIN 80 MG TAB PO SCH (20:51)
[2019-05-23] VITALS: BP 159/97; PULSE 85; RESP 18
[2019-05-23 04:00] VITALS: BP 132/85; PULSE 81; RESP 18
[2019-05-23 07:26] VITALS: BP 143/92; PULSE 92; RESP 18
[2019-05-23] MEDS: ASPIRIN (EC) 81 MG TAB PO SCH (08:12)
[2019-05-23] MEDS: FISH OIL 1,000 MG CAP PO SCH ×2 (08:13→21:06)
[2019-05-23] MEDS: AMLODIPINE 5 MG TAB PO SCH (08:13)
[2019-05-23] MEDS: LISINOPRIL 20 MG TAB PO SCH (08:14)
[2019-05-23] MEDS: NICOTINE (21 MG/24 HR) PATCH TRANSDERM SCH (08:14)
--- NOTE | 2019-05-23 09:30 | DS ---
Date/Time of Note Date/Time of Note DATE: 05/23/19 TIME: 09:28 Discharge Summary Admission/Discharge Info Admit Date/Time May 20, 2019 at 11:17 Discharge Date/Time Discharge Diagnosis Acute CVA Essential hypertension Dyslipidemia Tobacco dependency Alcohol use/dependency Leukocytosis, likely reactive Mild Thrombocytopenia, likely secondary to alcohol use Patient Condition: Stable Consults Procedures 05/21/2019: Brain MRI: IMPRESSION: 1. Acute / recent 6 mm right posterior limb of the internal capsule infarction. There is also acute / recent bilateral posterior cheatham radiata infarctions. There is also possible punctate left posterior temporal acute / recent infarction. 2. Mild to moderate generalized cerebral volume loss. 3. Advanced chronic microvascular ischemic changes. 4. Chronic left frontal opercular infarction. 5. Left frontal temporal subdural collection/hygroma with coarse calcification. 6. Left middle cranial fossa extension of subdural collection. 05 21 2019: 2D echo with bubble study: Conclusions: Normal left ventricular systolic function. Normal left ventricular cavity size. Mild concentric left ventricular hypertrophy. Ejection fraction is visually estimated at 65 %. Tissue Doppler/Mitral Doppler indices are consistent with impaired relaxation (Stage I diastolic dysfunction). No significant valvular stenosis or regurgitation seen. Bubble study was performed with and with out valsalva indicating no evidence of intra atrial shunt. Unable to obtain RVSP due to minimal presence of tricuspid regurgitation. Normal size and normal respiratory collapse consistent with normal right atrial pressure. Electronically Signed By: Aron Krause 2019-05-21 12:32:40 PDT 7. Left hemispheric craniotomy. 8. 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 9. Chronic right basal ganglia and bilateral thalamic lacunar infarctions. Further findings as detailed above. RPTAT: HVF .Jimi Colindres MD, Date Time Electronically viewed and signed by .Jimi Colindres MD, on 05/21/2019 11:02 .F/ CC: CADEN CLEMENS NP [phone] Hx of Present Illness This is a 53-year-old Burmese-speaking male with a history of hypertension, dyslipidemia, tobacco dependency, alcohol use, left frontal temporal hygroma, left-sided craniotomy with tumor resection presented to the emergency room with 1 week duration of right upper extremity numbness, right lower extremity weakness Apparently, patient felt like his right upper extremity weakness got worse with a new right-sided facial droop since last night. Patient also reported having difficulty finding words at times. Patient denied headache, loss of consciousness, dizziness, vision changes, fever, cough, chills, recent travel or contact with sick people, chest pain, palpitation, nausea, vomiting, abdominal pain, diarrhea, or other constitutional symptoms. On arrival to the emergency room, patient had a blood pressure 179/104. Brain CT showed left frontal white matter disease, without evidence to suggest acute territorial infarction. There was no acute intracranial hemorrhage. There was evidence of left frontal temporal subdural collection/hygroma. CTA head/neck unremarkable for any major intracranial/carotid artery stenosis. Labs unremark able except for white count 12,600, platelet 123, triglycerides 211, low HDL 25. Telemetry neurology consultation was done in the emergency room and patient was deemed not a candidate for TPA secondary to outside window.. Hospital Course SUBJECTIVE: no acute distress OBJECTIVE: Vital signs-see below PHYSICAL EXAM: Constitutional: Adequately built,not in acute distress. HEENT:,Mild rt facial droop+ Head atraumatic and normocephalic. Eyes: Extraocular muscles intact. Anicteric sclerae. Pupils equal bilaterally, reactive to light. NECK: Supple without lymph node. CHEST: Clear and good breath sounds equally. No wheezing. No rhonchi. HEART: S1, S2.53 yo M w/htn,dlp, tobacco dependency, alcohol use, left frontal temporal hygroma, left-sided craniotomy with tumor resection admitted with 1 week duration of right upper extremity numbness, right lower extremity weakness got worse last night with a right-sided facial droop.... Patient was noted with elevated blood pressure on arrival. Patient symptoms well highly concerning for acute stroke. Patient was started on aspirin/high intensity statin. Patient was out of TPA window. MRI confirmed Acute / recent 6 mm right posterior limb of the internal capsule infarction. There is also acute / recent bilateral posterior cheatham radiata infarctions. There is also possible punctate left posterior temporal acute / recent infarction. There was no evidence of major intracranial artery stenosis/occlusion. 2D echo with bubble study negative for shunting. Patient had PT/OT/ST evaluation and was cleared without any further inpatient rehabilitation recommended. Patient did not have any further focal deficit other than having right facial droop. He was able to tolerate diet and activities well. He did not require any assistive devices. At this time, we will discharge patient with outpatient follow-up once cleared from neurology standpoint. Patient was also counseled on cessation of tobacco products and alcohol. Approximately 60-minute was spent on coordinating the discharge on this patient. Patient was seen in collaboration with Dr. HughesRegular rate and rhythm. ABDOMEN: Soft/non tender with no rebound tenderness. Bowel sounds were present. EXTREMITIES: No cyanosis, clubbing or edema. NEUROLOGIC: Alert and oriented x3. Speech clear. Mild rt facial droop. RUE/RLE weaker without drift.Intact sensation. PSYCHOSOCIAL: No signs of depression. INTEGUMENTARY: No open wounds. ASSESSMENT AND PLAN: 53 yo M w/htn,dlp, tobacco dependency, alcohol use, left frontal temporal hygroma, left-sided craniotomy with tumor resection admitted with 1 week duration of right upper extremity numbness, right lower extremity weakness got worse last night with a right-sided facial droop.... Acute CVA, outside TPA window -Aspirin/high intensity statin -PT/OT/ST -f/u neurology recs Essential hypertension -stable -on CCB Dyslipidemia -on statin/Fish oil supplementation Tobacco dependency -Cessation advised. - Nicotine patch Alcohol use/dependency -Counselled Leukocytosis, likely reactive -Monitor Mild Thrombocytopenia, likely secondary to alcohol use -Stable. Monitor DVT prophylaxis: SCDs Dispo:cont.post stroke rehab. f/u neurology recs.dc planning in am if no further inpt rehab indicated. Patient was seen in collaboration with Dr. Parks. Home Meds Active Scripts Docusate Sodium* (Colace*) 100 Mg Capsule, 100 MG PO Q12H PRN for .CONSTIPATION, #30 CAP Prov:CLEMENS,CDAEN V. MIRROR PAINTER 05/23/19 [place]uyer-3/Dha/Epa/Fish Oil (Fish Oil 1,000 mg Softgel) 1,000 Mg Capsule, 1000 MG PO BID, #60 CAP Prov:CLEMENS,CADEN V. MIRROR PAINTER 05/23/19 Atorvastatin* (Atorvastatin*) 80 Mg Tablet, 80 MG PO HS, #30 TAB Prov:CADEN CLEMENS NP 05/23/19 Aspirin* (Aspirin* EC) 81 Mg Tablet.dr, 81 MG PO DAILY, #30 TAB Prov:CADEN CLEMENS NP 05/23/19 Reported Medications Amlodipine Besylate* (Norvasc*) 5 Mg Tablet, 5 MG PO DAILY, TAB 05/20/19 Lisinopril* (Lisinopril*) 20 Mg Tablet, 20 MG PO DAILY, #30 TAB 05/20/19 Discontinued Reported Medications Flaxseed Oil (FLAX SEED OIL) 1,000 Mg Capsule, 1000 MG PO DAILY, CAP 05/20/19 Potassium Chloride* (Potassium Chloride*) 8 Meq Capsule.er, 8 MEQ PO DAILY, CAP 05/20/19 Primary Care Provider Not On Staff Doctor CADEN CLEMENS NP May 23, 2019 09:30
--- NOTE | 2019-05-23 09:31 | PDOCDIS ---
Discharge Instructions DIAGNOSIS Discharge Diagnosis Acute CVA Essential hypertension Dyslipidemia Tobacco dependency Alcohol use/dependency Leukocytosis, likely reactive Mild Thrombocytopenia, likely secondary to alcohol use CONDITION [id number] Patient Condition: [id number] Stable HOME CARE INSTRUCTIONS: [id number] Diet Instructions: [id number] Low Fat /Cholesterol FOLLOW UP/APPOINTMENTS Follow-up Plan You are found to have acute stroke. We recommend you taking aspirin and atorvastatin daily and to have follow-up with your primary care physician in 1 week. Will also benefit from continued outpatient physical therapy/Occupational Therapy. Smoking and Alcohol cessation CADEN CLEMENS NP May 23, 2019 09:31
[2019-05-23] MEDS ORDERED: OMEG100024 PO (09:33)
[2019-05-23] MEDS ORDERED: ASPI-817 PO (09:33)
[2019-05-23] MEDS ORDERED: DOCU-144 PO (09:33)
[2019-05-23] MEDS ORDERED: ATOR-2 PO (09:33)
[2019-05-23 11:02] VITALS: BP 159/93; PULSE 101; RESP 18
[2019-05-23] MEDS: ACETAMINOPHEN 325 MG TAB PO PRN (11:12)
--- NOTE | 2019-05-23 11:34 | CONS ---
Assessment/Plan Assessment/Plan Assessment/Plan (Recall) 53 M c/ multiple comorbidities including HTN and tobacco dependence, who presents for evaluation of several days of right sided weakness and numbness...for which neurology is consulted. MRI brain confirmed cardioembolic appearing acute infarctions.. CTA Head and neck are unremarkable. TTE is unrevealing UDS neg; A1C nl, LDL at goal P: Consider KEKE for further characterization Agree w/ asa daily for secondary stroke prevention Tobacco cessation and other risk factor modification as able PT/OT/ST as necessary Will follow clinically Consultation Date/Type/Reason Admit Date/Time May 20, 2019 at 11:17 Type of Consult Neurology Reason for Consultation r sided weakness/numbness Requesting Provider: CADEN CLEMENS NP Date/Time of Note DATE: 05/23/19 TIME: 11:28 24 HR Interval Summary Free Text/Dictation s/p MRI brain Exam/Review of Systems Exam Vitals Vital Signs Date Temp Pulse Resp B/P (MAP) Pulse Ox O2 O2 Flow FiO2 Time Delivery Rate 05/23/19 98.0 101 18 159/93 95 Room Air 11:02 (115) 05/20/19 2.0 13:54 Intake and Output 05/22/19 05/22/19 05/23/19 1515:00 23:00 07:00 IntakeIntake Total 350 ml 490 ml BalanceBalance 350 ml 490 ml Results Result Diagram: 05/22/19 0550 05/22/19 0550 Medications Medication Current Medications Amlodipine Besylate (Norvasc) 5 mg DAILY PO Last administered on 05/23/19at 08:13; Admin Dose 5 MG; Start 05/21/19 at 09:00 Aspirin (Halfprin) 81 mg DAILY PO Last administered on 05/23/19at 08:12; Admin Dose 81 MG; Start 05/21/19 at 09:00 Lisinopril (Zestril) 20 mg DAILY PO Last administered on 05/23/19at 08:14; Admin Dose 20 MG; Start 05/21/19 at 09:00 IV Flush (NS 3 ml) 3 ml PER PROTOCOL IV ; Start 05/20/19 at 12:30 Ondansetron HCl (Zofran Inj) 4 mg Q6H PRN IV NAUSEA/VOMITING; Start 05/20/19 at 12:30 Acetaminophen (Tylenol Tab) 650 mg Q6H PRN PO .PAIN 1-3 OR TEMP Last administered on 05/23/19 11:12; Admin Dose 650 MG; Start 05/20/19 at 12:30 Docusate Sodium (Colace) 100 mg Q12H PRN PO .CONSTIPATION; Start 05/20/19 at 12:30 Atorvastatin Calcium (Lipitor) 80 mg HS PO Last administered on 05/22/19at 20:51; Admin Dose 80 MG; Start 05/21/19 at 21:00 Fish Oil (Fish Oil) 1,000 mg BID PO Last administered on 05/23/19 08:13; Admin Dose 1,000 MG; Start 05/20/19 at 21:00 Hydralazine HCl (Apresoline) 10 mg Q6H PRN IV SBP>170 Last administered on 05/22/19 00:41; Admin Dose 10 MG; Start 05/20/19 at 14:00 Miscellaneous Information Patients own medicat... BID@10,16 XX Last administered on 05/23/19at 10:11; Admin Dose 1 EA; Start 05/21/19 at 10:00 Nicotine (Nicoderm 21 Mg/ 24hr) 1 patch DAILY TRANSDERM Last administered on 05/23/19 08:14; Admin Dose 1 PATCH; Start 05/21/19 at 10:30 CHARLIE MAKI May 23, 2019 11:34
--- NOTE | 2019-05-23 12:25 | PN ---
Date/Time of Note Date/Time of Note DATE: 05/23/19 TIME: 12:24 Assessment/Plan VTE Prophylaxis Risk score (from Ns)>0 risk: 2 SCD applied (from Ns): Yes Pharmacological prophylaxis: NA/contraindicated Pharm contraindication: low risk/ambulating Lines/Catheters [facility] [place] Urinary Cath still in place: No Assessment/Plan Hospital Course SUBJECTIVE: no acute distress OBJECTIVE: Vital signs-see below PHYSICAL EXAM: Constitutional: Adequately built,not in acute distress. HEENT:,Mild rt facial droop+ Head atraumatic and normocephalic. Eyes: Extraocular muscles intact. Anicteric sclerae. Pupils equal bilaterally, reactive to light. NECK: Supple without lymph node. CHEST: Clear and good breath sounds equally. No wheezing. No rhonchi. HEART: S1, S2. Regular rate and rhythm. ABDOMEN: Soft/non tender with no rebound tenderness. Bowel sounds were present. EXTREMITIES: No cyanosis, clubbing or edema. NEUROLOGIC: Alert and oriented x3. Speech clear. Mild rt facial droop. RUE/RLE weaker without drift.Intact sensation. PSYCHOSOCIAL: No signs of depression. INTEGUMENTARY: No open wounds. ASSESSMENT AND PLAN: 53 yo M w/htn,dlp, tobacco dependency, alcohol use, left frontal temporal hygroma, left-sided craniotomy with tumor resection admitted with 1 week duration of right upper extremity numbness, right lower extremity weakness got worse last night with a right-sided facial droop.... Acute CVA, outside TPA window -Recuperating nicely -Aspirin/high intensity statin -PT/OT/ST -Neurology recommended KEKE Essential hypertension -stable -on CCB Dyslipidemia -on statin/Fish oil supplementation Tobacco dependency -Cessation advised. - Nicotine patch Alcohol use/dependency -Counselled Leukocytosis, likely reactive -Monitor Mild Thrombocytopenia, likely secondary to alcohol use -Stable. Monitor DVT prophylaxis: SCDs Dispo: Neurology recommended a KEKE study. Will call electrical and instrument engineer and likely this can be scheduled in the next 24 hours. Patient was seen in collaboration with Dr. Hughes Result Diagram: 05/22/19 0550 05/22/19 0550 Exam/Review of Systems Exam Vitals Vital Signs Date Temp Pulse Resp B/P (MAP) Pulse Ox O2 O2 Flow FiO2 Time Delivery Rate 05/23/19 98.0 101 18 159/93 95 Room Air 11:02 (115) 05/20/19 2.0 13:54 Intake and Output 05/22/19 05/22/19 05/23/19 1515:00 23:00 07:00 IntakeIntake Total 350 ml 490 ml BalanceBalance 350 ml 490 ml Medications Medication Current Medications Amlodipine Besylate (Norvasc) 5 mg DAILY PO Last administered on 05/23/19 08:13; Admin Dose 5 MG; Start 05/21/19 at 09:00 Aspirin (Halfprin) 81 mg DAILY PO Last administered on 05/23/19 08:12; Admin Dose 81 MG; Start 05/21/19 at 09:00 Lisinopril (Zestril) 20 mg DAILY PO Last administered on 05/23/19 08:14; Admin Dose 20 MG; Start 05/21/19 at 09:00 IV Flush (NS 3 ml) 3 ml PER PROTOCOL IV ; Start 05/20/19 at 12:30 Ondansetron HCl (Zofran Inj) 4 mg Q6H PRN IV NAUSEA/VOMITING; Start 05/20/19 at 12:30 Acetaminophen (Tylenol Tab) 650 mg Q6H PRN PO .PAIN 1-3 OR TEMP Last administered on 05/23/19 11:12; Admin Dose 650 MG; Start 05/20/19 at 12:30 Docusate Sodium (Colace) 100 mg Q12H PRN PO .CONSTIPATION; Start 05/20/19 at 12:30 Atorvastatin Calcium (Lipitor) 80 mg HS PO Last administered on 05/22/19at 20:51; Admin Dose 80 MG; Start 05/21/19 at 21:00 Fish Oil (Fish Oil) 1,000 mg BID PO Last administered on 05/23/19 08:13; Admin Dose 1,000 MG; Start 05/20/19 at 21:00 Hydralazine HCl (Apresoline) 10 mg Q6H PRN IV SBP>170 Last administered on 05/22/19 00:41; Admin Dose 10 MG; Start 05/20/19 at 14:00 Miscellaneous Information Patients own medicat... BID@10,16 XX Last administered on 05/23/19at 10:11; Admin Dose 1 EA; Start 05/21/19 at 10:00 Nicotine (Nicoderm 21 Mg/ 24hr) 1 patch DAILY TRANSDERM Last administered on 05/23/19at 08:14; Admin Dose 1 PATCH; Start 05/21/19 at 10:30 CADEN CLEMENS NP May 23, 2019 12:25
[2019-05-23 15:11] VITALS: BP 145/87; PULSE 79; RESP 18
[2019-05-23 19:36] VITALS: BP 139/90; PULSE 98; RESP 18
[2019-05-23] MEDS: ATORVASTATIN 80 MG TAB PO SCH (21:06)
[2019-05-24] VITALS (14 sets, daily range): BP systolic 116–156; BP diastolic 71–98; PULSE 77–91; RESP 14–22
--- NOTE | 2019-05-24 06:27 | CONS ---
DATE OF ADMISSION: 05/20/2019 DATE OF CONSULTATION: 05/23/2019 REASON FOR CONSULTATION: Assess for source of embolus with stroke. REQUESTING PHYSICIAN: Mya Clemens NP, from the hospitalist service, from the neurology ser vice. HISTORY OF PRESENT ILLNESS: Mr. Root is a 53-year-old male with history of hypertension, dyslipidem ia, tobacco dependence, ETOH use, temporal hygroma, prior left-sided craniotomy with tumor resection, who presented with right upper extremity numbness and bilateral lower extremity weakness and right-s ided facial droop. The patient underwent a brain MRI that revealed acute recent 6 mm right dorsal li mb internal capsule infarction. Also, acute recent bilateral posterior coronary radiata infarctions. A neck CTA that revealed no bilateral cervical internal carotid artery stenosis. A head CTA that r evealed no bilateral cervical internal carotid stenosis, a chest x-ray that revealed no acute cardiop ulmonary abnormalities and a head CT that revealed no loss of murray-white differentiation, no acute in tracranial hemorrhage, mild to moderate central greater than peripheral cerebral volume loss. [facility] electrocardiogram revealed normal sinus rhythm, rate of 86, normal axis, borderline inferior Q's, right atrial enlargement. Patient subsequently admitted to the floor and since admit to the [facility] or has been monitored on telemetry, no significant arrhythmias. The patient was placed on Norvasc, a spirin at this time and being followed by neurology services. The patient denies chest pain, shortne ss of breath. PAST MEDICAL HISTORY: As above in HPI. MEDICATIONS CURRENTLY IN HOSPITAL: 1. Lipitor 80 mg at bedtime. 2. Nicoderm patch. 3. Norvasc 5 mg daily. 4. Aspirin 81 mg daily. 5. Zestril 10 mg daily. 6. Fish oil 1 gram b.i.d. 7. Hydralazine p.r.n. 8. Zofran p.r.n. 9. Tylenol p.r.n. 10. Colace p.r.n. ALLERGIES: PENICILLIN. SOCIAL HISTORY: Positive tobacco, social ETOH, no illicit drug use. FAMILY HISTORY: No sudden cardiac or early CAD. REVIEW OF SYSTEMS: As above in HPI. CONSTITUTIONAL: No fevers, chills. PULMONARY: No current shortness of breath. CARDIOVASCULAR: No current chest pain. GASTROINTESTINAL: No vomiting. GENITOURINARY: No hematuria. MUSCULOSKELETAL: Degenerative joint disease. PSYCHIATRIC: No documented psych history. NEUROLOGIC: Acute CVA. PHYSICAL EXAMINATION: VITAL SIGNS: Temperature 98, blood pressure 159/93, pulse 101, respiratory rate 18, satting 95%. GENERAL: The patient is alert, awake, no acute distress, complaining of right-sided weakness. NECK: JVP approximately 8 cm water. CHEST: Fair air movement throughout. HEART: Regular rate and rhythm. Normal S1, S2, I/ systolic murmur, nondisplaced PMI. ABDOMEN: Positive bowel sounds, soft. EXTREMITIES: No edema, 1+ pulses bilateral posterior tibial. LABORATORY DATA: Most recent 05/22/2019, white count 12.6, hemoglobin 6.2, platelet count 124. [place] um 141, potassium 3.5, creatinine 0.7, BUN 13. Tox screen negative. UA negative. ELECTROCARDIOGRAM: As above in HPI. No further electrocardiograms for my review at this time. IMPRESSION: 1. Acute cerebrovascular accident. Assess for intracardiac source of embolus. 2. Abnormal echocardiogram, assess for acute coronary syndrome, borderline inferior Q's. 3. Hypertension on Norvasc with mild elevation. Question if patient needs permissive hypertension. 4. Acute cerebrovascular accident. 5. Dyslipidemia. 6. Tobacco dependence. RECOMMENDATIONS: 1. At this time, we would maintain patient on telemetry monitoring to follow rhythm and rate control closely. 2. We will continue the patient's current Norvasc and lisinopril to control blood pressure with up t itration as necessary to improve overall systolic blood pressure control. 3. Continue the patient's nicotine patch for smoking cessation. 4. Continue the patient's current statin and adjust it according to fasting lipid panel check. 5. We will try to facilitate a transesophageal echo with bubble study to further assess for possibil ity of intracardiac source of embolus. Thank you for allowing me to take part in the care of this patient. I will continue to follow very c losely with you with recommendations to be made as the patient progresses through his inpatient hospi nba clinical course. Dictated By: AILYN MURPHY/LESLIE Conf#: [id number] DID#: [id number] CC: MYA CLEMENS NP; KENISHA PANG MD;*EndCC*
--- NOTE | 2019-05-24 06:48 | EEG ---
EEG NOTE Report Details DATE OF TEST: 05/23/19 HISTORY: The patient is a 53-year-old M who presents with right sided weakness. This EEG is requested to evaluate for seizures. SEDATION: None. CONDITIONS OF RECORDING: This EEG was recorded digitally on the [employer] machine, using the International 10-20 System of electrodes plus anterior temporals and [place]. STATES SAMPLED: Wakefulness and drowsiness. FINDINGS: During wakefulness, there is a 9 Hz posterior dominant rhythm, which attenuates normally with eye opening. There is a normal [id number] frequency-amplitude gradient. The remainder of the awake background is normal. Photic stimulation does not elicit any definite driving responses or epileptiform discharges. Hyperventilation was not performed. The patient became drowsy but did not pass into sleep. No asymmetries, focal abnormalities or epileptiform discharges were seen. IMPRESSION: Normal electroencephalogram during wakefulness and drowsiness. CHARLIE MAKI May 24, 2019 06:47
--- NOTE | 2019-05-24 09:25 | CONS ---
Consult Date/Type/Reason Admit Date/Time May 20, 2019 at 11:17 Initial Consult Date Requesting Provider: CADEN CLEMENS NP Date/Time of Note DATE: 05/24/19 TIME: 09:24 Subjective NO acute events -pt comfortable - KEKE planned today. ROS: No fever, no chills, no nausea, no vomiting, no diarrhea/constipation No recent weight changes No chest pain, no PND, no orthopnea No dizziness, blurred vision No thirst, no heat or cold intolerance Objective Vitals Vital Signs Date Temp Pulse Resp B/P (MAP) Pulse Ox O2 O2 Flow FiO2 Time Delivery Rate 05/24/19 98.6 82 22 138/85 92 Room Air 07:22 (102) 05/20/19 2.0 13:54 Intake and Output 05/23/19 05/23/19 05/24/19 1515:00 23:00 07:00 IntakeIntake Total 640 ml BalanceBalance 640 ml Exam General: WN/WD/NAD, AOx 3 HEENT: Unicetric/atraumatic/EOMI (follows commands) NECK: JVD elevated, no thyromegaly Lymph: no lymphadenopathy HEART: regular with no S3, II/ systolic murmur at apex LUNGS: Coarse sounds ABD: soft, NT, ND, +BS : Intact Neuro: non focal SKIN: chronic changes EXT: trace edema Results/Medications Result Diagram: 05/24/1935 05/24/19 0535 Results 24 hrs Laboratory Tests Test 05/24/19 05:35 White Blood Count 15.4 #H Red Blood Count 5.15 Hemoglobin 15.8 Hematocrit 46.1 Mean Corpuscular Volume 89.5 Mean Corpuscular Hemoglobin 30.7 Mean Corpuscular Hemoglobin Concent 34.3 Red Cell Distribution Width 12.7 Platelet Count 131 L Mean Platelet Volume 12.9 H Immature Granulocytes % 0.500 H Neutrophils % 72.6 Lymphocytes % 13.1 L Monocytes % 11.2 H Eosinophils % 2.2 Basophils % 0.4 Nucleated Red Blood Cells % 0.0 Immature Granulocytes # 0.070 H Neutrophils # 11.2 H Lymphocytes # 2.0 Monocytes # 1.7 H Eosinophils # 0.3 Basophils # 0.1 Nucleated Red Blood Cells # 0.0 Prothrombin Time 13.8 Prothrombin Time Ratio 1.1 INR International Normalized Ratio 1.05 Activated Partial Thromboplast Time 32.6 Sodium Level 140 Potassium Level 4.1 Chloride Level 108 Carbon Dioxide Level 20 L Anion Gap 12 Blood Urea Nitrogen 17 Creatinine 0.79 Est Glomerular Filtrat Rate mL/min > 60 Glucose Level 102 Calcium Level 9.0 Home Meds Active Scripts Docusate Sodium* (Colace*) 100 Mg Capsule, 100 MG PO Q12H PRN for .CONSTIPATION, #30 CAP Prov:CLEMENS,CADEN V. ABSORPTION PLANT OPERATOR HELPER 05/23/19 [place]-3/Dha/Epa/Fish Oil (Fish Oil 1,000 mg Softgel) 1,000 Mg Capsule, 1000 MG PO BID, #60 CAP Prov:CLEMENS,CADEN V. ABSORPTION PLANT OPERATOR HELPER 05/23/19 Atorvastatin* (Atorvastatin*) 80 Mg Tablet, 80 MG PO HS, #30 TAB Prov:CLEMENS,CADEN V. ABSORPTION PLANT OPERATOR HELPER 05/23/19 Aspirin* (Aspirin* EC) 81 Mg Tablet.dr, 81 MG PO DAILY, #30 TAB Prov:CLEMENS,CADEN V. ABSORPTION PLANT OPERATOR HELPER 05/23/19 Reported Medications Amlodipine Besylate* (Norvasc*) 5 Mg Tablet, 5 MG PO DAILY, TAB 05/20/19 Lisinopril* (Lisinopril*) 20 Mg Tablet, 20 MG PO DAILY, #30 TAB 05/20/19 Discontinued Reported Medications Flaxseed Oil (FLAX SEED OIL) 1,000 Mg Capsule, 1000 MG PO DAILY, CAP 05/20/19 Potassium Chloride* (Potassium Chloride*) 8 Meq Capsule.er, 8 MEQ PO DAILY, CAP 05/20/19 Medications Current Medications Amlodipine Besylate (Norvasc) 5 mg DAILY PO Last administered on 05/23/19at 08:1 3; Admin Dose 5 MG; Start 05/21/19 at 09:00 Aspirin (Halfprin) 81 mg DAILY PO Last administered on 05/23/19at 08:12; Admin Dose 81 MG; Start 05/21/19 at 09:00 Lisinopril (Zestril) 20 mg DAILY PO Last administered on 05/23/19at 08:14; Admin Dose 20 MG; Start 05/21/19 at 09:00 IV Flush (NS 3 ml) 3 ml PER PROTOCOL IV ; Start 05/20/19 at 12:30 Ondansetron HCl (Zofran Inj) 4 mg Q6H PRN IV NAUSEA/VOMITING; Start 05/20/19 at 12:30 Acetaminophen (Tylenol Tab) 650 mg Q6H PRN PO .PAIN 1-3 OR TEMP Last adm inistered on 05/23/19at 11:12; Admin Dose 650 MG; Start 05/20/19 at 12:30 Docusate Sodium (Colace) 100 mg Q12H PRN PO .CONSTIPATION; Start 05/20/19 at 12:30 Atorvastatin Calcium (Lipitor) 80 mg HS PO Last administered on 05/23/19 21:06; Admin Dose 80 MG; Start 05/21/19 at 21:00 Fish Oil (Fish Oil) 1,000 mg BID PO Last administered on 05/23/19 21:06; Admin Dose 1,000 MG; Start 05/20/19 at 21:00 Hydralazine HCl (Apresoline) 10 mg Q6H PRN IV SBP>170 Last administered on 05/22/19 00:41; Admin Dose 10 MG; Start 05/20/19 at 14:00 Miscellaneous Information Patients own medicat... BID@10,16 XX Last administered on 05/23/19 16:02; Admin Dose 1 EA; Start 05/21/19 at 10:00 Nicotine (Nicoderm 21 Mg/ 24hr) 1 patch DAILY TRANSDERM Last administered on 05/23/19 08:14; Admin Dose 1 PATCH; Start 05/21/19 at 10:30 Assessment/Plan Hospital Course (Demo Recall) 1. Acute cerebrovascular accident. Assess for intracardiac source of embolus. KEKE planned today. 2. Abnormal echocardiogram, assess for acute coronary syndrome, borderline inferior Q's.R/O mi - doubt ischemia. 3. Hypertension on Norvasc with mild elevation. Question if patient needs permissive hypertension. On therpy - better now. 4. Acute cerebrovascular accident- neuro to follow. 5. Dyslipidemia. 6. Tobacco dependence- d/c advised. KIMBER GUSTAFSON MD May 24, 2019 09:25
--- NOTE | 2019-05-24 11:19 | PN ---
Date/Time of Note Date/Time of Note DATE: 05/24/19 TIME: 11:17 Assessment/Plan VTE Prophylaxis Risk score (from Ns)>0 risk: 1 SCD applied (from Ns): Yes Pharmacological prophylaxis: NA/contraindicated Pharm contraindication: low risk/ambulating Lines/Catheters IV [facility] Type (from [email or web address] Saline Lock Urinary Cath still in place: No Assessment/Plan Hospital Course SUBJECTIVE: no acute distress.For KEKE toay OBJECTIVE: Vital signs-see below PHYSICAL EXAM: Constitutional: Adequately built,not in acute distress. HEENT:,Mild rt facial droop+ Head atraumatic and normocephalic. Eyes: Extraocular muscles intact. Anicteric sclerae. Pupils equal bilaterally, re active to light. NECK: Supple without lymph node. CHEST: Clear and good breath sounds equally. No wheezing. No rhonchi. HEART: S1, S2. Regular rate and rhythm. ABDOMEN: Soft/non tender with no rebound tenderness. Bowel sounds were present. EXTREMITIES: No cyanosis, clubbing or edema. NEUROLOGIC: Alert and oriented x3. Speech clear. Mild rt facial droop. RUE/RLE weaker without drift.Intact sensation. PSYCHOSOCIAL: No signs of depression. INTEGUMENTARY: No open wounds. ASSESSMENT AND PLAN: 53 yo M w/htn,dlp, tobacco dependency, alcohol use, left frontal temporal hygroma, left-sided craniotomy with tumor resection admitted with 1 week duration of right upper extremity numbness, right lower extremity weakness got worse last night with a right-sided facial droop.... Acute CVA, outside TPA window -Recuperating nicely -Aspirin/high intensity statin -PT/OT/ST -KEKE to assess for cardiac source of thrombus -f/u neuro recs Essential hypertension -stable -on CCB/acei Dyslipidemia -on statin/Fish oil supplementation Tobacco dependency -Cessation advised. - Nicotine patch Alcohol use/dependency -Counselled Leukocytosis, likely reactive -Monitor Mild Thrombocytopenia, likely secondary to alcohol use -Stable. Monitor DVT prophylaxis: SCDs Dispo: For KEKE today.DC plan in am if no further work up needed. Patient was seen in collaboration with Dr. Hughes Result Diagram: 05/24/19 0535 05/24/19 0535 Results 24hrs Laboratory Tests Test 05/24/19 05:35 White Blood Count 15.4 #H Red Blood Count 5.15 Hemoglobin 15.8 Hematocrit 46.1 Mean Corpuscular Volume 89.5 Mean Corpuscular Hemoglobin 30.7 Mean Corpuscular Hemoglobin Concent 34.3 Red Cell Distribution Width 12.7 Platelet Count 131 L Mean Platelet Volume 12.9 H Immature Granulocytes % 0.500 H Neutrophils % 72.6 Lymphocytes % 13.1 L Monocytes % 11.2 H Eosinophils % 2.2 Basophils % 0.4 Nucleated Red Blood Cells % 0.0 Immature Granulocytes # 0.070 H Neutrophils # 11.2 H Lymphocytes # 2.0 Monocytes # 1.7 H Eosinophils # 0.3 Basophils # 0.1 Nucleated Red Blood Cells # 0.0 Prothrombin Time 13.8 Prothrombin Time Ratio 1.1 INR International Normalized Ratio 1.05 Activated Partial Thromboplast Time 32.6 Sodium Level 140 Potassium Level 4.1 Chloride Level 108 Carbon Dioxide Level 20 L Anion Gap 12 Blood Urea Nitrogen 17 Creatinine 0.79 Est Glomerular Filtrat Rate mL/min > 60 Glucose Level 102 Calcium Level 9.0 Exam/Review of Systems Exam Vitals Vital Signs Date Temp Pulse Resp B/P (MAP) Pulse Ox O2 O2 Flow FiO2 Time Delivery Rate 05/24/19 98.0 83 22 156/98 96 Room Air 11:10 (117) 05/20/19 2.0 13:54 Intake and Output 05/23/19 05/23/19 05/24/19 1515:00 23:00 07:00 IntakeIntake Total 640 ml BalanceBalance 640 ml Results Results 24hrs Laboratory Tests Test 05/24/19 05:35 White Blood Count 15.4 #H Red Blood Count 5.15 Hemoglobin 15.8 Hematocrit 46.1 Mean Corpuscular Volume 89.5 Mean Corpuscular Hemoglobin 30.7 Mean Corpuscular Hemoglobin Concent 34.3 Red Cell Distribution Width 12.7 Platelet Count 131 L Mean Platelet Volume 12.9 H Immature Granulocytes % 0.500 H Neutrophils % 72.6 Lymphocytes % 13.1 L Monocytes % 11.2 H Eosinophils % 2.2 Basophils % 0.4 Nucleated Red Blood Cells % 0.0 Immature Granulocytes # 0.070 H Neutrophils # 11.2 H Lymphocytes # 2.0 Monocytes # 1.7 H Eosinophils # 0.3 Basophils # 0.1 Nucleated Red Blood Cells # 0.0 Prothrombin Time 13.8 Prothrombin Time Ratio 1.1 INR International Normalized Ratio 1.05 Activated Partial Thromboplast Time 32.6 Sodium Level 140 Potassium Level 4.1 Chloride Level 108 Carbon Dioxide Level 20 L Anion Gap 12 Blood Urea Nitrogen 17 Creatinine 0.79 Est Glomerular Filtrat Rate mL/min > 60 Glucose Level 102 Calcium Level 9.0 Medications Medication Current Medications Amlodipine Besylate (Norvasc) 5 mg DAILY PO Last administered on 05/23/19 08:13; Admin Dose 5 MG; Start 05/21/19 at 09:00 Aspirin (Halfprin) 81 mg DAILY PO Last administered on 05/23/19 08:12; Admin Dose 81 MG; Start 05/21/19 at 09:00 Lisinopril (Zestril) 20 mg DAILY PO Last administered on 05/23/19 08:14; Admin Dose 20 MG; Start 05/21/19 at 09:00 IV Flush (NS 3 ml) 3 ml PER PROTOCOL IV ; Start 05/20/19 at 12:30 Ondansetron HCl (Zofran Inj) 4 mg Q6H PRN IV NAUSEA/VOMITING; Start 05/20/19 at 12:30 Acetaminophen (Tylenol Tab) 650 mg Q6H PRN PO .PAIN 1-3 OR TEMP Last administered on 05/23/19 11:12; Admin Dose 650 MG; Start 05/20/19 at 12:30 Docusate Sodium (Colace) 100 mg Q12H PRN PO .CONSTIPATION; Start 05/20/19 at 1 2:30 Atorvastatin Calcium (Lipitor) 80 mg HS PO Last administered on 05/23/19 21:06; Admin Dose 80 MG; Start 05/21/19 at 21:00 Fish Oil (Fish Oil) 1,000 mg BID PO Last administered on 05/23/19 21:06; Admin Dose 1,000 MG; Start 05/20/19 at 21:00 Hydralazine HCl (Apresoline) 10 mg Q6H PRN IV SBP>170 Last administered on 05/22/19 00:41; Admin Dose 10 MG; Start 05/20/19 at 14:00 Miscellaneous Information Patients own medicat... BID@10,16 XX Last administered on 05/23/19 16:02; Admin Dose 1 EA; Start 05/21/19 at 10:00 Nicotine (Nicoderm 21 Mg/ 24hr) 1 patch DAILY TRANSDERM Last administered on 05/23/19at 08:14; Admin Dose 1 PATCH; Start 05/21/19 at 10:30 CADEN CLEMENS NP May 24, 2019 11:19
--- NOTE | 2019-05-24 12:21 | PREAC ---
Date/Time of Note Date/Time of Note DATE: 05/24/19 TIME: 12:17 Anesthesia Eval and Record Evaluation Time Pre-Procedure Interview DATE: 05/24/19 TIME: 12:17 Age 53 Sex male NPO: 8 hrs Preoperative diagnosis Hx of CVA, R/O cardiac source for Emboli Planned procedure KEKE Past Medical History Past Medical History: Includes Cardio: HTN, Dyslipidemia Pulm: Smoking Hx Neuro: CVA, Other (s/p Temporal Craniotomy, Right Hemiparesis and Bilateral Lower EXtremities weakness) Hepatic: Alcohol abuse Heme: Thrombocytopenia Surgery & Anesthesia Issues No known issue Meds Anticoagulation: Yes Beta Armadno within 24 hr: No Reason Beta Armando not given: Pt. not on B-Armando Active Scripts Docusate Sodium* (Colace*) 100 Mg Capsule, 100 MG PO Q12H PRN for .CONSTIPATION, #30 CAP Prov:CLEMENSCADEN V. TEAM COORDINATOR 05/23/19 [place]-3/Dha/Epa/Fish Oil (Fish Oil 1,000 mg Softgel) 1,000 Mg Capsule, 1000 MG PO BID, #60 CAP Prov:CLEMENSCADEN MELGOZA V. TEAM COORDINATOR 05/23/19 Atorvastatin* (Atorvastatin*) 80 Mg Tablet, 80 MG PO HS, #30 TAB Prov:CLEMENSKESHAA V. TEAM COORDINATOR 05/23/19 Aspirin* (Aspirin* EC) 81 Mg Tablet.dr, 81 MG PO DAILY, #30 TAB Prov:CLEMENSKESHAA V. TEAM COORDINATOR 05/23/19 Reported Medications Amlodipine Besylate* (Norvasc*) 5 Mg Tablet, 5 MG PO DAILY, TAB 05/20/19 Lisinopril* (Lisinopril*) 20 Mg Tablet, 20 MG PO DAILY, #30 TAB 05/20/19 Discontinued Reported Medications Flaxseed Oil (FLAX SEED OIL) 1,000 Mg Capsule, 1000 MG PO DAILY, CAP 05/20/19 Potassium Chloride* (Potassium Chloride*) 8 Meq Capsule.er, 8 MEQ PO DAILY, CAP 05/20/19 Current Medications Amlodipine Besylate (Norvasc) 5 mg DAILY PO Last administered on 05/23/19at 08:13; Admin Dose 5 MG; Start 05/21/19 at 09:00 Aspirin (Halfprin) 81 mg DAILY PO Last administered on 05/23/19at 08:12; Admin Dose 81 MG; Start 05/21/19 at 09:00 Lisinopril (Zestril) 20 mg DAILY PO Last administered on 05/23/19 08:14; Admin Dose 20 MG; Start 05/21/19 at 09:00 IV Flush (NS 3 ml) 3 ml PER PROTOCOL IV ; Start 05/20/19 at 12:30 Ondansetron HCl (Zofran Inj) 4 mg Q6H PRN IV NAUSEA/VOMITING; Start 05/20/19 at 12:30 Acetaminophen (Tylenol Tab) 650 mg Q6H PRN PO .PAIN 1-3 OR TEMP Last administered on 05/23/19 11:12; Admin Dose 650 MG; Start 05/20/19 at 12:30 Docusate Sodium (Colace) 100 mg Q12H PRN PO .CONSTIPATION; Start 05/20/19 at 12:30 Atorvastatin Calcium (Lipitor) 80 mg HS PO Last administered on 05/23/19 21:06; Admin Dose 80 MG; Start 05/21/19 at 21:00 Fish Oil (Fish Oil) 1,000 mg BID PO Last administered on 05/23/19 21:06; Admin Dose 1,000 MG; Start 05/20/19 at 21:00 Hydralazine HCl (Apresoline) 10 mg Q6H PRN IV SBP>170 Last administered on 05/22/19 00:41; Admin Dose 10 MG; Start 05/20/19 at 14:00 Miscellaneous Information Patients own medicat... BID@10,16 XX Last administered on 05/23/19 16:02; Admin Dose 1 EA; Start 05/21/19 at 10:00 Nicotine (Nicoderm 21 Mg/ 24hr) 1 patch DAILY TRANSDERM Last administered on 05/23/19 08:14; Admin Dose 1 PATCH; Start 05/21/19 at 10:30 Meds reviewed: Yes Allergies Coded Allergies: Penicillins (Unverified Allergy, Unknown, 05/20/19) Allergies Reviewed: Yes Labs/Studies Labs Reviewed: Reviewed by anesthesiologist Result Diagram: 05/24/19 0535 05/24/19 0535 Laboratory Tests 05/24/19 05:35 test: N/A Studies: ECG (LAE, NSR), CXR (No Acute Disease) Pre-procedure Exam Last vitals Vital Signs Date Temp Pulse Resp B/P (MAP) Pulse Ox O2 O2 Flow FiO2 Time Delivery Rate 05/24/19 98.0 83 22 156/98 96 Room Air 11:10 (117) 05/20/19 2.0 13:54 Airway: Adequate mouth opening, Adequate thyromental dist Mallampati: Mallampati II Teeth: Normal Lung: Normal Heart: Normal ASA Physical Status ASA physical status: 3 Emergency: None Planned Anesthetic General/MAC: MAC Planned Pain Management Parenteral pain med Pre-operative Attestations Prior to commencing anesthesia and surgery, the patient was re-evaluated, there was verification of: *The patient's identity *The results of appropriate recent lab work and preoperative vital signs *The above evaluation not changing prior to induction *Anesthetic plan, risk benefits, alternative and complications discussed with patient/family; questions answered; patient/family understands, accepts and wishes to proceed. DHAVAL BURGESS MD May 24, 2019 12:21
--- NOTE | 2019-05-24 12:56 | SIPON ---
Date/Time of Note Date/Time of Note DATE: 05/24/19 TIME: 12:55 Operative Report Preoperative Diagnosis 1.Acute CVA Postoperative Diagnosis 1.acute CVA, no definite source of intracardiac embolus Operation/Procedure Performed 1.KEKE Surgeon see signature line ophthalmic medical assistant 1.Horacio Anesthesia: MAC Estimated blood loss: none Transfusion Required none Specimen none Grafts/Implants none Complications none AILYN HEREDIA May 24, 2019 12:56
--- NOTE | 2019-05-24 13:10 | PAC ---
Date/Time of Note Date/Time of Note DATE: 05/24/19 TIME: 13:10 Post-Anesthesia Notes Post-Anesthesia Note Last documented vital signs Vital Signs Date Temp Pulse Resp B/P (MAP) Pulse Ox O2 O2 Flow FiO2 Time Delivery Rate 05/24/19 98.0 83 22 156/98 96 Room Air 13:10 (117) 05/20/19 2.0 13:54 Activity: WNL Respiratory function: WNL Cardiovascular function: WNL Mental status: Baseline Pain reasonably controlled: Yes Hydration appropriate: Yes Nausea/Vomiting absent: Yes DHAVAL BURGESS MD May 24, 2019 13:10
--- NOTE | 2019-05-24 13:28 | CONS ---
Assessment/Plan Assessment/Plan Assessment/Plan (Recall) 53 M c/ multiple comorbidities including HTN and tobacco dependence, who presents for evaluation of several days of right sided weakness and numbness...for which neurology is consulted. MRI brain confirmed cardioembolic appearing acute infarctions.. CTA Head and neck are unremarkable. TTE is unrevealing UDS neg; A1C nl, LDL at goal P: Await KEKE for further characterization Agree w/ asa daily for secondary stroke prevention Tobacco cessation and other risk factor modification as able PT/OT/ST as necessary Will follow clinically Consultation Date/Type/Reason Admit Date/Time May 20, 2019 at 11:17 Type of Consult Neurology Reason for Consultation r sided weakness/numbness Requesting Provider: CADEN CLEMENS NP Date/Time of Note DATE: 05/24/19 TIME: 13:28 24 HR Interval Summary Free Text/Dictation Continues acute care Exam/Review of Systems Exam Vitals Vital Signs Date Temp Pulse Resp B/P (MAP) Pulse Ox O2 O2 Flow FiO2 Time Delivery Rate 05/24/19 98.0 77 14 118/75 98 Mask 8.0 12:58 (89) Intake and Output 05/23/19 05/23/19 05/24/19 1515:00 23:00 07:00 IntakeIntake Total 640 ml BalanceBalance 640 ml Results Result Diagram: 05/24/19 0535 05/24/19 0535 Results 24hrs Laboratory Tests Test 05/24/19 05:35 White Blood Count 15.4 #H Red Blood Count 5.15 Hemoglobin 15.8 Hematocrit 46.1 Mean Corpuscular Volume 89.5 Mean Corpuscular Hemoglobin 30.7 Mean Corpuscular Hemoglobin Concent 34.3 Red Cell Distribution Width 12.7 Platelet Count 131 L Mean Platelet Volume 12.9 H Immature Granulocytes % 0.500 H Neutrophils % 72.6 Lymphocytes % 13.1 L Monocytes % 11.2 H Eosinophils % 2.2 Basophils % 0.4 Nucleated Red Blood Cells % 0.0 Immature Granulocytes # 0.070 H Neutrophils # 11.2 H Lymphocytes # 2.0 Monocytes # 1.7 H Eosinophils # 0.3 Basophils # 0.1 Nucleated Red Blood Cells # 0.0 Prothrombin Time 13.8 Prothrombin Time Ratio 1.1 INR International Normalized Ratio 1.05 Activated Partial Thromboplast Time 32.6 Sodium Level 140 Potassium Level 4.1 Chloride Level 108 Carbon Dioxide Level 20 L Anion Gap 12 Blood Urea Nitrogen 17 Creatinine 0.79 Est Glomerular Filtrat Rate mL/min > 60 Glucose Level 102 Calcium Level 9.0 Medications Medication Current Medications Amlodipine Besylate (Norvasc) 5 mg DAILY PO Last administered on 05/23/19 08:13; Admin Dose 5 MG; Start 05/21/19 at 09:00 Aspirin (Halfprin) 81 mg DAILY PO Last administered on 05/23/19 08:12; Admin Dose 81 MG; Start 05/21/19 at 09:00 Lisinopril (Zestril) 20 mg DAILY PO Last administered on 05/23/19 08:14; Admin Dose 20 MG; Start 05/21/19 at 09:00 IV Flush (NS 3 ml) 3 ml PER PROTOCOL IV ; Start 05/20/19 at 12:30 Ondansetron HCl (Zofran Inj) 4 mg Q6H PRN IV NAUSEA/VOMITING; Start 05/20/19 at 12:30 Acetaminophen (Tylenol Tab) 650 mg Q6H PRN PO .PAIN 1-3 OR TEMP Last administered on 05/23/19 11:12; Admin Dose 650 MG; Start 05/20/19 at 12:30 Docusate Sodium (Colace) 100 mg Q12H PRN PO .CONSTIPATION; Start 05/20/19 at 12:30 Atorvastatin Calcium (Lipitor) 80 mg HS PO Last administered on 05/23/19 21:06; Admin Dose 80 MG; Start 05/21/19 at 21:00 Fish Oil (Fish Oil) 1,000 mg BID PO Last administered on 05/23/19 21:06; Admin Dose 1,000 MG; Start 05/20/19 at 21:00 Hydralazine HCl (Apresoline) 10 mg Q6H PRN IV SBP>170 Last administered on 05/22/19 00:41; Admin Dose 10 MG; Start 05/20/19 at 14:00 Miscellaneous Information Patients own medicat... BID@10,16 XX Last administered on 05/23/19 16:02; Admin Dose 1 EA; Start 05/21/19 at 10:00 Nicotine (Nicoderm 21 Mg/ 24hr) 1 patch DAILY TRANSDERM Last administered on 7/1/19at 08:14; Admin Dose 1 PATCH; Start 05/21/19 at 10:30 CHARLIE MAKI May 24, 2019 13:28
[2019-05-24] MEDS: LISINOPRIL 20 MG TAB PO SCH (15:42)
[2019-05-24] MEDS: AMLODIPINE 5 MG TAB PO SCH (15:42)
[2019-05-24] MEDS: ASPIRIN (EC) 81 MG TAB PO SCH (15:42)
[2019-05-24] MEDS: NICOTINE (21 MG/24 HR) PATCH TRANSDERM SCH (15:42)
[2019-05-24] MEDS: FISH OIL 1,000 MG CAP PO SCH ×2 (15:43→20:27)
[2019-05-24] MEDS: ATORVASTATIN 80 MG TAB PO SCH (20:27)
[2019-05-24] MEDS: ACETAMINOPHEN 325 MG TAB PO PRN (23:49)
[2019-05-25 04:06] VITALS: BP 119/75; PULSE 81; RESP 16
--- NOTE | 2019-05-25 06:19 | CARRPT ---
DATE OF PROCEDURE: 05/24/2019 TYPE OF PROCEDURES: Transesophageal echo. ATTENDING PHYSICIAN: Ailyn Rosas MD REFERRING PHYSICIAN: Mya Truong NP from the hospitalist service, from neurology service. INDICATION: Assess for source of embolus status post cerebrovascular accident. BRIEF HISTORY: Ms. Root is a 53-year-old male with hypertension, dyslipidemia with right-side d facial droop, upper extremity and lower extremity weakness and found to have acute CVA, possibly em bolic by MRI. The patient underwent transesophageal echo with a bubble study revealing no significan t abnormalities, now being referred for transesophageal echo to further assess for intracardiac sourc e of embolus. DESCRIPTION OF PROCEDURE: After informed consent was obtained, the patient was brought to the intens rhys care unit where he was placed on continuous telemetry monitoring with blood pressure cuff cycling every 3 minutes, and continuous O2 saturation monitoring. The patient had a bite block placed in hi s mouth and using a transverse echo, patient's esophagus was intubated using multiplanar imaging and color flow Doppler interrogation, the patient's intracardiac structures were adequately interrogated and the probe was removed. The patient was allowed to awake from his anesthetized state. This compl eted the procedure. There were no noted complications. FINDINGS: 1. Grossly normal left ventricular size and systolic function. 2. No findings of patent foramen ovale or other interatrial septal defect by both color flow Doppler interrogation of septum as well as agitated saline contrast injection. 3. No definite findings of left atrial appendage thrombus. Left atrial appendage velocity greater t crum 50 cm per second. 4. Normal-appearing aortic valve apparatus. No aortic regurgitation. 5. No pre-mitral valve apparatus with trace mitral regurgitation. 6. apparatus with trace tricuspid regurgitation. 7. Not well visualized pulmonic apparatus . 8. Very minimal of patient's distal descending, transverse and ascending aorta. IMPRESSION: No definite findings of intracardiac source of embolus on this transesophageal echo. RECOMMENDATIONS: 1. We will continue to assess for alternative sources. 2. The patient will be n.p.o. x2 hours post-procedure and be allowed to have sips of clear liquid an d advance diet as tolerated back to full. Dictated By: AILYN MURPHY/LESLIE Conf#: [id number] DID#: [id number] CC: KENISHA PANG MD;*End*
[2019-05-25 07:22] VITALS: BP 139/84; PULSE 77; RESP 22
[2019-05-25] MEDS: FISH OIL 1,000 MG CAP PO SCH (08:17)
[2019-05-25] MEDS: NICOTINE (21 MG/24 HR) PATCH TRANSDERM SCH (08:18)
[2019-05-25] MEDS: LISINOPRIL 20 MG TAB PO SCH (08:18)
[2019-05-25] MEDS: AMLODIPINE 5 MG TAB PO SCH (08:18)
[2019-05-25] MEDS: ASPIRIN (EC) 81 MG TAB PO SCH (08:18)
--- NOTE | 2019-05-25 10:43 | DS ---
Date/Time of Note Date/Time of Note DATE: 05/25/19 TIME: 10:40 Discharge Summary Admission/Discharge Info Admit Date/Time May 20, 2019 at 11:17 Discharge Date/Time Discharge Diagnosis Acute CVA Essential hypertension Dyslipidemia Tobacco dependency Alcohol use/dependency Leukocytosis, likely reactive Mild Thrombocytopenia, likely secondary to alcohol use Patient Condition: Stable Consults DR.Idoko Ernandez Procedures 05 21 2019: 2D echocardiogram: Conclusions: Normal left ventricular systolic function. Normal left ventricular cavity size. Mild concentric left ventricular hypertrophy. Ejection fraction is visually estimated at 65 %. Tissue Doppler/Mitral Doppler indices are consistent with impaired relaxation (Stage I diastolic dysfunction). No significant valvular stenosis or regurgitation seen. Bubble study was performed with and with out valsalva indicating no evidence of intra atrial shunt. Unable to obtain RVSP due to minimal presence of tricuspid regurgitation. Normal size and normal respiratory collapse consistent with normal right atrial pressure. Electronically Signed By: Aron Krause 2019-05-21 12:32:40 PDT 05/24/2019: Transesophageal echocardiogram. FINDINGS: 1. Grossly normal left ventricular size and systolic function. 2. No findings of patent foramen ovale or other interatrial septal defect by both color flow Doppler interrogation of septum as well as agitated saline contrast injection. 3. No definite findings of left atrial appendage thrombus. Left atrial appendage velocity greater than 50 cm per second. 4. Normal-appearing aortic valve apparatus. No aortic regurgitation. 5. No pre-mitral valve apparatus with trace mitral regurgitation. 6. apparatus with trace tricuspid regurgitation. 7. Not well visualized pulmonic apparatus . 8. Very minimal of patient's distal descending, transverse and ascending aorta. IMPRESSION: No definite findings of intracardiac source of embolus on this transesophageal echo. RECOMMENDATIONS: 1. We will continue to assess for alternative sources. 2. The patient will be n.p.o. x2 hours post-procedure and be allowed to have sips of clear liquid and advance diet as tolerated back to full. Dictated By: AILYN HEREDIA MD 05/21/2019: Brain MRI: IMPRESSION: 1. Acute / recent 6 mm right posterior limb of the internal capsule infarction. There is also acute / recent bilateral posterior cheatham radiata infarctions. There is also possible punctate left posterior temporal acute / recent infarction. 2. Mild to moderate generalized cerebral volume loss. 3. Advanced chronic microvascular ischemic changes. 4. Chronic left frontal opercular infarction. 5. Left frontal temporal subdural collection/hygroma with coarse calcification. 6. Left middle cranial fossa extension of subdural collection. 7. Left hemispheric craniotomy. 8. 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 9. Chronic right basal ganglia and bilateral thalamic lacunar infarctions. Further findings as detailed above. RPTAT: HVF .Jimi Colindres MD, MD Date Time Electronically viewed and signed by .Jimi Colindres MD, MD on 05/21/2019 11:02 .F/ CC: CADEN CLEMENS V. [employer] [id number] Hx of Present Illness This is a 53-year-old [place]e-speaking male with a history of hypertension, dyslipidemia, tobacco dependency, alcohol use, left frontal temporal hygroma, left-sided craniotomy with tumor resection presented to the emergency room with 1 week duration of right upper extremity numbness, right lower extremity weakness Apparently, patient felt like his right upper extremity weakness got worse with a new right-sided facial droop since last night. Patient also reported having difficulty finding words at times. Patient denied headache, loss of consciousness, dizziness, vision changes, fever, cough, chills, recent travel or contact with sick people, chest pain, palpitation, nausea, vomiting, abdominal pain, diarrhea, or other constitutional symptoms. On arrival to the emergency room, patient had a blood pressure 179/104. Brain CT showed left frontal white matter disease, without evidence to suggest acute territorial infarction. There was no acute intracranial hemorrhage. There was evidence of left frontal temporal subdural collection/hygroma. CTA head/neck unremarkable for any major intracranial/carotid artery stenosis. Labs unremarkable except for white count 12,600, platelet 123, triglycerides 211, low HDL 25. Telemetry neurology consultation was done in the emergency room and patient was deemed not a candidate for TPA secondary to outside window.. Hospital Course 53 yo M w/htn,dlp, tobacco dependency, alcohol use, left frontal temporal hygroma, left-sided craniotomy with tumor resection admitted with 1 week duration of right upper extremity numbness, right lower extremity weakness with a right-sided facial droop.... Patient was out of TPA window. MRI showed Acute / recent 6 mm right posterior limb of the internal capsule infarction. There is also acute / recent bilateral posterior cheatham radiata infarctions. There is also possible punctate left posterior temporal acute / recent infarction. There was no evidence of any intracranial artery thrombus. Patient also underwent transesophageal echocardiogram with no evidence of cardiac source of thrombus. Blood pressure was controlled with CCB/TOMI inhibitors. He was counseled on tobacco cessation and alcohol cessation. Patient was continued on high intensity statin, aspirin and fish oil supplementation. Patient was seen by physical therapist. He was able to participate with therapy without any need for DME's. Patient continued to have right-sided facial droop with clear speech. At this time, no further inpatient work-up indicated and patient is medically stable for discharge with continuation of aspirin and high intensity statin indefinite. Patient verbalized understanding. Approximately 60-minute was spent on coordinating the discharge on this patient. Patient was seen in collaboration with [facility] Active Scripts Docusate Sodium* (Colace*) 100 Mg Capsule, 100 MG PO Q12H PRN for .CONSTIPATION, #30 CAP Prov:CADEN CLEMENS V. [employer]ANT 05/23/19 Trail-3/Dha/Epa/Fish Oil (Fish Oil 1,000 mg Softgel) 1,000 Mg Capsule, 1000 MG PO BID, #60 CAP Prov:CADEN CLEMENS [employer] 05/23/19 Atorvastatin* (Atorvastatin*) 80 Mg Tablet, 80 MG PO HS, #30 TAB Prov:CADNE CLEMENS [employer]SULTANT 05/23/19 Aspirin* (Aspirin* EC) 81 Mg Tablet., 81 MG PO DAILY, #30 TAB Prov:CADEN CLEMENS [employer] SAL[employer] CONSULTANT 05/23/19 Reported Medications Amlodipine Besylate* (Norvasc*) 5 Mg Tablet, 5 MG PO DAILY, TAB 05/20/19 Lisinopril* (Lisinopril*) 20 Mg Tablet, 20 MG PO DAILY, #30 TAB 05/20/19 Discontinued Reported Medications Flaxseed Oil (FLAX SEED OIL) 1,000 Mg Capsule, 1000 MG PO DAILY, CAP 05/20/19 Potassium Chloride* (Potassium Chloride*) 8 Meq Capsule.er, 8 MEQ PO DAILY, CAP 05/20/19 Follow-up Plan You are found to have acute stroke. We recommend you taking aspirin and atorvastatin daily and to have follow-up with your primary care physician in 1 week. Will also benefit from continued outpatient physical therapy/Occupational Therapy. Smoking and Alcohol cessation Primary Care Provider Not On Staff Doctor CADEN CLEMENS NP May 25, 2019 10:43
--- NOTE | 2019-05-25 10:58 | CONS ---
Assessment/Plan Assessment/Plan Assessment/Plan (Recall) 53 M c/ multiple comorbidities including HTN and tobacco dependence, who presents for evaluation of several days of right sided weakness and numbness...for which neurology is consulted. MRI brain confirmed cardioembolic appearing acute infarctions.. CTA Head and neck are unremarkable. TTE and KEKE are unrevealing UDS neg; A1C nl, LDL at goal P: Agree w/ asa daily for secondary stroke prevention Tobacco cessation and other risk factor modification as able PT/OT/ST as necessary Other management per primary Consultation Date/Type/Reason Admit Date/Time May 20, 2019 at 11:17 Type of Consult Neurology Reason for Consultation r sided weakness/numbness Requesting Provider: CADEN CLEMENS NP Date/Time of Note DATE: 05/25/19 TIME: 10:57 24 HR Interval Summary Free Text/Dictation Continues acute care Exam/Review of Systems Exam Vitals Vital Signs Date Temp Pulse Resp B/P (MAP) Pulse Ox O2 O2 Flow FiO2 Time Delivery Rate 05/25/19 98.0 77 22 139/84 96 Room Air 07:22 (102) 05/24/19 8.0 13:12 Intake and Output 05/24/19 05/24/19 05/25/19 1515:00 23:00 07:00 IntakeIntake Total 420 ml 60 ml OutputOutput Total 3 ml BalanceBalance 417 ml 60 ml Results Result Diagram: 05/24/19 0535 05/24/19 0535 Medications Medication Current Medications Amlodipine Besylate (Norvasc) 5 mg DAILY PO Last administered on 05/25/19at 08:18; Admin Dose 5 MG; Start 05/21/19 at 09:00 Aspirin (Halfprin) 81 mg DAILY PO Last administered on 05/25/19at 08:18; Admin Dose 81 MG; Start 05/21/19 at 09:00 Lisinopril (Zestril) 20 mg DAILY PO Last administered on 05/25/19at 08:18; Admin Dose 20 MG; Start 05/21/19 at 09:00 IV Flush (NS 3 ml) 3 ml PER PROTOCOL IV ; Start 05/20/19 at 12:30 Ondansetron HCl (Zofran Inj) 4 mg Q6H PRN IV NAUSEA/VOMITING; Start 05/20/19 at 12:30 Acetaminophen (Tylenol Tab) 650 mg Q6H PRN PO .PAIN 1-3 OR TEMP Last administered on 05/24/19 23:49; Admin Dose 650 MG; Start 05/20/19 at 12:30 Docusate Sodium (Colace) 100 mg Q12H PRN PO .CONSTIPATION; Start 05/20/19 at 12 :30 Atorvastatin Calcium (Lipitor) 80 mg HS PO Last administered on 05/24/19 20:27; Admin Dose 80 MG; Start 05/21/19 at 21:00 Fish Oil (Fish Oil) 1,000 mg BID PO Last administered on 05/25/19 08:17; Admin Dose 1,000 MG; Start 05/20/19 at 21:00 Hydralazine HCl (Apresoline) 10 mg Q6H PRN IV SBP>170 Last administered on 05/22/19 00:41; Admin Dose 10 MG; Start 05/20/19 at 14:00 Miscellaneous Information Patients own medicat... BID@10,16 XX Last administered on 05/23/19 16:02; Admin Dose 1 EA; Start 05/21/19 at 10:00 Nicotine (Nicoderm 21 Mg/ 24hr) 1 patch DAILY TRANSDERM Last administered on 05/25/19 08:18; Admin Dose 1 PATCH; Start 05/21/19 at 10:30 CHARLIE MAKI May 25, 2019 10:58
[2019-05-25 12:14] VITALS: BP 140/98; PULSE 96; RESP 22
--- NOTE | 2019-05-25 13:37 | CONS ---
Assessment/Plan Assessment/Plan Hospital Course (Demo Recall) IMPRESSION: 1. Acute cerebrovascular accident. Assess for intracardiac source of embolus. NOw s/p KEKE which revealed no definite source of emboilus 2. Abnormal echocardiogram, assess for acute coronary syndrome, borderline inferior Q's. 3. Hypertension-somewhat labile 4. Acute cerebrovascular accident. 5. Dyslipidemia. 6. Tobacco dependence. 7. CHF Recc: -Tele -Continue norvasc/zestril with uptitration as necessary -Continue asa/statin -ok for d/c from cardiac standpoint Consultation Date/Type/Reason Admit Date/Time May 20, 2019 at 11:17 Initial Consult Date 05/23/19 Type of Consult Cardiology Reason for Consultation abnl ecg Requesting Provider: CADEN CLEMENS NP Date/Time of Note DATE: 05/25/19 TIME: 13:32 Exam/Review of Systems Vital Signs Vitals Vital Signs Date Temp Pulse Resp B/P (MAP) Pulse Ox O2 O2 Flow FiO2 Time Delivery Rate 05/25/19 98.0 96 22 140/98 96 Room Air 12:14 (112) 05/24/19 8.0 13:12 Intake and Output 05/24/19 05/24/19 05/25/19 1515:00 23:00 07:00 IntakeIntake Total 420 ml 60 ml OutputOutput Total 3 ml BalanceBalance 417 ml 60 ml Exam Exam Review of Systems: CONSTITUTIONAL: No fevers, chills. PULMONARY: No sob CARDIOVASCULAR: No chest pain/palpitations GASTROINTESTINAL: No nausea/vomiting. GENITOURINARY: No hematuria/dysuria. MUSCULOSKELETAL: No myagias/arthalgias. PSYCHIATRIC: The patient denies depression. NEUROLOGIC: No weakness Constitutional: alert Psych: no complaints Head: normocephalic ENMT: mucosa pink and moist Neck: supple, jvd (9 cm water) Respiratory: clear to auscultation Cardiovascular: regular rate and rhythm Gastrointestinal: soft, non-tender Musculoskeletal: muscle tone (normal) Extremities: edema (none) Neurological: focal weakness (R sided weakness), other Labs Result Diagram: 05/24/19 0535 05/24/19 0535 Medications Medications Current Medications Amlodipine Besylate (Norvasc) 5 mg DAILY PO Last administered on 05/25/19at 08:18; Admin Dose 5 MG; Start 05/21/19 at 09:00 Aspirin (Halfprin) 81 mg DAILY PO Last administered on 05/25/19 08:18; Admin Dose 81 MG; Start 05/21/19 at 09:00 Lisinopril (Zestril) 20 mg DAILY PO Last administered on 05/25/19 08:18; Admin Dose 20 MG; Start 05/21/19 at 09:00 IV Flush (NS 3 ml) 3 ml PER PROTOCOL IV ; Start 05/20/19 at 12:30 Ondansetron HCl (Zofran Inj) 4 mg Q6H PRN IV NAUSEA/VOMITING; Start 05/20/19 at 12:30 Acetaminophen (Tylenol Tab) 650 mg Q6H PRN PO .PAIN 1-3 OR TEMP Last administered on 05/24/19 23:49; Admin Dose 650 MG; Start 05/20/19 at 12:30 Docusate Sodium (Colace) 100 mg Q12H PRN PO .CONSTIPATION; Start 05/20/19 at 12:30 Atorvastatin Calcium (Lipitor) 80 mg HS PO Last administered on 05/24/19 20:27; Admin Dose 80 MG; Start 05/21/19 at 21:00 Fish Oil (Fish Oil) 1,000 mg BID PO Last administered on 05/25/19 08:17; Admin Dose 1,000 MG; Start 05/20/19 at 21:00 Hydralazine HCl (Apresoline) 10 mg Q6H PRN IV SBP>170 Last administered on 05/22/19 00:41; Admin Dose 10 MG; Start 05/20/19 at 14:00 Miscellaneous Information Patients own medicat... BID@10,16 XX Last administered on 05/23/19 16:02; Admin Dose 1 EA; Start 05/21/19 at 10:00 Nicotine (Nicoderm 21 Mg/ 24hr) 1 patch DAILY TRANSDERM Last administered on 05/25/19 08:18; Admin Dose 1 PATCH; Start 05/21/19 at 10:30 AILYN HEREDIA May 25, 2019 13:37
--- NOTE | 2019-05-25 15:43 | RADRPT ---
Vent Rate: 82 bpm RR Interval: 732 msec AL Interval: 137 msec QRS Duration: 88 msec QT Interval: 376 msec QTC Interval: 439 msec P-R-T [place]: 60 - 50 - 52 degrees Sinus rhythm...normal P axis, V-rate 50- 99 Probable left atrial enlargement...P >50mS, <-0.10mV V1 Electronically Signed By: Anant Romo
== END 2019-05-25 16:27 | disposition home or self-care (01) | DRG 66 ==
LOC: E/R 10:16 → TEL 11:17
PROVIDERS: ADMIT Internal Medicine; ATTEND Internal Medicine
DX: I63.9 Cerebral infarction, unspecified (principal); D18.1 Lymphangioma, any site; D72.829 Elevated white blood cell count, unspecified; E78.5 Hyperlipidemia, unspecified; F10.20 Alcohol dependence, uncomplicated; F17.210 Nicotine dependence, cigarettes, uncomplicated; D69.59 Other secondary thrombocytopenia; Z98.890 Other specified postprocedural states; I11.0 Hypertensive heart disease with heart failure; I50.9 Heart failure, unspecified
CPT/HCPCS: 36415; 70450; 70496; 70498; 70551; 71045; 80048; 80053; 80061; 80307; 81003; 82550; 82553; 82962; 83036; 83735; 84100; 84484; 85025; 85049; 85610; 85670; 85730; 92610; 93005; 93306; 93312; 93325; 95819; 97110; 97116; 97162; 97166; J0360; J1650; J2060; J7040; Q9967